=== PATIENT | male | born 1970 | race Caucasian/White ===

== ENCOUNTER 2023-03-07 14:50 | Outpatient (OUT) | payer OTHER, SELFPAY ==
--- NOTE | 2023-03-07 | CA_ITS ---
Patient: SEVERO RAO Exam Date: 03/07/2023 : 1970 Gender:M Ordering : [facility] Admission #: [id number] Family : Order #: [id number] CLICK HERE TO VIEW EXAM ECHOCARDIOGRAM REPORT PROCEDURE: CA ECHO DOPPLER COMPLETE INDICATIONS: Dyspnea on exertion, hypertension, edema, diabetes COMPARISON: None. DESCRIPTION: COMPLETE ECHOCARDIOGRAM Real-time transthoracic echocardiography with 2D, M-mode, spectral and color flow Doppler performed. QUALITY: Technical quality was good. LEFT VENTRICLE: Normal chamber size. Mild concentric left ventricular hypertrophy. LV EF: Normal left ventricular ejection fraction, (>55%). DIASTOLIC: Normal diastolic function. ATRIAL SEPTUM: Visually appears intact. LEFT ATRIUM: Normal chamber size. RIGHT ATRIUM: Normal chamber size. RIGHT VENTRICLE: Normal chamber size. Normal systolic function. TRICUSPID VALVE: Normal mobility and thickness. No stenosis with mild regurgitation. No evidence of pulmonary hypertension. RVSP 30 mmHg MITRAL VALVE: Normal mobility and thickness. No evidence of mitral valve stenosis. There is no mitral annular calcification. Trivial mitral regurgitation. AORTIC VALVE: Normal trileaflet appearance. No visible sclerosis. Normal leaflet mobility. No evidence of aortic valve stenosis. No aortic regurgitation. AORTIC ROOT: Normal diameter and appearance. PULMONIC VALVE: Normal thickness and mobility. No stenosis. Trivial regurgitation. PERICARDIUM: Anterior free space; trivial effusion versus fat pad IVC: Collapses with inspirations. CONCLUSION: Global left ventricular systolic function is normal; visually estimated ejection fraction is 55 to 60%. Mildly increased left ventricular wall thickness. The right ventricle is normal in size and systolic function. Mild tricuspid regurgitation. Anterior free space; trivial effusion versus fat pad. Adult Echocardiography Procedure Report Left Ventricle LVEDD (3.7 - 5.6 cm): 5.06 cm LVESD (2.2 - 4.0 cm): 2.94 cm LVIVS thickness (0.6 - 1.2 cm): 1.29 cm LVPW thickness (0.5 - 1.0 cm): 1.15 cm e': 0.09 m/s E - e': 8.09 LVOT Max Gradient: 3.03 mm[Hg] LVOT Area (cm2): 0.87 m/s Peak Velocity (LVOT): 0.87 m/s LVOT Diameter 2.65 cm Left Atrium LA Volume Index (2D A2C): 22.29 ml/m2 Left Atrium Systolic Dimension: 3.53 cm Mitral Valve MV E to A Ratio: 1.36, 1.12 Mitral Valve A-Wave Peak Velocity: 0.59 m/s Mitral Valve E-Wave Peak Velocity: 0.73 m/s Right Ventricle Aorta AO Root Diam: 3.60 cm Ascending Ao Diam: 2.96 cm Aortic Valve AoV Area (Peak Dalton): 4.06 cm2, 4.06 cm2 Peak Velocity(Antegrade Flow): 1.18 m/s Peak Gradient(Antegrade Flow): 5.54 mm[Hg] Tricuspid Valve Peak Velocity (Regurgitant Flow): 2.60 m/s, 2.58 m/s Pulmonic Valve Peak Velocity: 0.91 m/s Peak Gradient: 2.58 mm[Hg], 4.21 mm[Hg] Right Atrium Right Atrium Systolic Pressure: 28.35 ml, 28.35 ml Dictated by: Teto Sorenson M.D. on 03/12/2023 at 14:19 Approved by: Teto Sorenson M.D. on 03/12/2023 at 14:22
== END 2023-03-07 14:51 ==
PROVIDERS: PCP Family Medicine; Visit Provider Nurse Practitioner Family
DX: R06.09 Other forms of dyspnea (principal); I10 Essential (primary) hypertension; R60.0 Localized edema
CPT/HCPCS: 93306

== ENCOUNTER 2023-04-01 10:55 | Outpatient (OUT) | payer OTHER, SELFPAY ==
[2023-04-01 12:07] LABS: Basophils Percent Auto 0.5 % (0.2-2.0); Eosinophils Absolute Auto 0.1 10^3/uL (0.0-0.7); Hematocrit 39.2 % (42.0-54.0); Immature Granulocytes Abs Auto 0.02 10^3/uL (0.00-0.03); Immature Granulocytes Pct Auto 0.3 % (0.0-0.5); Lymphocytes Absolute Auto 1.5 10^3/uL (1.2-3.8); Lymphocytes Percent Auto 24.7 % (20.5-60.0); Mean Corpuscular HGB Conc 33.2 g/dL (29.9-35.2); Mean Corpuscular Hemoglobin 30.7 pg (25.9-34.0); Mean Corpuscular Volume 92.5 fL (80.0-94.0); Mean Platelet Volume 10.4 fL (9.5-13.5); Monocytes Absolute Auto 0.5 10^3/uL (0.3-0.8); Monocytes Percent Auto 8.5 % (1.7-12.0); Platelet Count 194 10^3/uL (150-450); Red Blood Count 4.24 10^6/uL (4.70-6.10); Red Cell Distribution Width 13.1 % (11.0-15.0); White Blood Count 6.1 10^3/uL (4.0-11.0)
[2023-04-01 12:19] LABS: Estimated Average Glucose 134 mg/dL; Glycohemoglobin A1C 6.3 % (4.5-6.2)
[2023-04-01 13:01] LABS: Alanine Aminotransferase 50 U/L (16-63); Albumin Globulin Ratio 1.3; Albumin Level 4.1 g/dL (3.4-5.0); Alkaline Phosphatase 68 U/L (46-116); Aspartate Amino Transferase 31 U/L (15-37); Bilirubin Direct 0.1 mg/dL (0.0-0.2); Bilirubin Total 0.4 mg/dL (0.2-1.0); Chol HDL Ratio 2.4; Cholesterol 96 mg/dL (<=200); Free T3 2.25 pg/mL (2.18-3.98); Globulin 3.2 g/dL; HDL Cholesterol 40 mg/dL (40-60); LDL Cholesterol Calculated 39.4 mg/dL; Thyroid Stimulating Hormone 0.743 uIU/mL (0.358-3.740); Total Protein 7.3 g/dL (6.4-8.2); Triglycerides 83 mg/dL (<=150); VLDL CHOLESTEROL 16.6 mg/dL
== END 2023-04-01 10:56 | disposition home or self-care (01) ==
PROVIDERS: PCP Family Medicine; Visit Provider Family Medicine
DX: Z00.00 Encounter for general adult medical examination without abnormal findings (principal); Z79.899 Other long term (current) drug therapy; E11.9 Type 2 diabetes mellitus without complications; E78.5 Hyperlipidemia, unspecified; Z12.5 Encounter for screening for malignant neoplasm of prostate; Z12.11 Encounter for screening for malignant neoplasm of colon
CPT/HCPCS: 36415; 80061; 80076; 83036; 84436; 84443; 84481; 85025; G0103

== ENCOUNTER 2023-09-10 08:26 | Outpatient (OUT) | payer OTHER, SELFPAY ==
[2023-09-10 09:00] LABS: Alanine Aminotransferase 61 U/L (16-63); Albumin Globulin Ratio 1.3; Albumin Level 3.9 g/dL (3.4-5.0); Alkaline Phosphatase 75 U/L (46-116); Anion Gap 13.1; Aspartate Amino Transferase 41 U/L (15-37); BUN Creatinine Ratio 7.8; Bilirubin Total 0.5 mg/dL (0.2-1.0); Calcium 9.2 mg/dL (8.5-10.1); Carbon Dioxide 29.4 mmol/L (21.0-32.0); Chloride 102 mmol/L (98-107); Estimated GFR (African America >60 (>=60); Estimated GFR (Non-African Ame >60 (>=60); Glucose 196 mg/dL (74-106); Potassium 4.5 mmol/L (3.5-5.1); Sodium 140 mmol/L (136-145); Total Protein 6.9 g/dL (6.4-8.2)
[2023-09-10 09:06] LABS: Estimated Average Glucose 126 mg/dL
== END 2023-09-10 08:27 | disposition home or self-care (01) ==
LOC: LAB 08:27
PROVIDERS: PCP Family Medicine; Visit Provider Internal Medicine
DX: E11.8 Type 2 diabetes mellitus with unspecified complications (principal); Z51.81 Encounter for therapeutic drug level monitoring; I10 Essential (primary) hypertension; K76.0 Fatty (change of) liver, not elsewhere classified
CPT/HCPCS: 36415; 80053; 82607; 83036

== ENCOUNTER 2023-11-28 10:56 | Outpatient (OUT) | payer OTHER, SELFPAY ==
--- OUTSIDE RECORDS SUMMARY | 2023-11-28 11:02 | XMS_ITS | CCD ---
Author Name Unknown Address [address] [place] [address] Organization [facility] Care Team Providers Care Tooth Clerk Name Role Phone STEFFEN SAM Unavailable Unavailable HOY, STEFFEN Unavailable Unavailable HOY, STEFFEN Unavailable Unavailable HOY, STEFFEN Unavailable Unavailable ARRON, GALE Unavailable Unavailable HOSTEFFEN Yin M Unavailable Unavailable ARRON, GALE Unavailable Unavailable ARRON, GALE Unavailable Unavailable STEFFEN SAM M Unavailable Unavailable ONEYDAARWILLIAM Unavailable Unavailable MAATOUK, AHMAD F Unavailable Unavailable KOLLURU, ROXANN Unavailable Unavailable WAGNER, DR BOURNE Primary Care Unavailable EDWARDUKADANY, DR GOSS Admitting Unavailable MOUKADANY, DR GOSS Attending Unavailable MOUKADANY, DR GOSS Consulting Unavailable TERESAY, DR BOURNE Primary Care Unavailable HOY, DR BOURNE Admitting Unavailable HOY, DR BOURNE Attending Unavailable TERESAY, DR BOURNE Consulting Unavailable HOY, DR BOURNE Consulting Unavailable TERESAY, DR BOURNE Primary Care Unavailable HOY, DR BOURNE Admitting Unavailable WAGNER, DR BOURNE Attending Unavailable WAGNER, DR BOURNE Primary Care Unavailable NAYA, DR GOSS Attending Unavailable NAYA, DR GOSS Admitting Unavailable Deven Beckham Unavailable Steffen Sam Primary Care Unavailable Deven Beckham Attending Unavailable Deven Beckham Admitting Unavailable WHIT TOLEDO Attending Unavailable ANA PAULA PERSON Attending Unavailable Medications Current Medications Medication Drug Class(es) Dates Sig (Normalized) Sig (Original) 0.25 MG, 0.5 MG Dose 3 ML semaglutide 0.68 MG/ML Pen Injector [Ozempic] (2 sources) Start: 01-01-2023 inject 0.5 mg by subcutaneous injection every week Ozempic (0.25 or 0.5 MG/DOSE) 2 MG/3ML 0.5 mg Subcutaneous weekly for 28 days E11.8 12 Dec, 2022 Active Start: 01-01-2023 Ozempic (0.25 or 0.5 MG/DOSE) 2 MG/3ML 0.25 mg for one month and then increase to 0.5 mg dose Subcutaneous weekly for 30 days E11.8 12 Dec, 2022 Active 3 ML semaglutide 1.34 MG/ML Pen Injector [Ozempic] (4 sources) Start: 07-16-2023 Ozempic (1 MG/ DOSE) 4 MG/3ML 1 mg as directed Subcutaneous weekly for 30 days 1 mg dose temporarily until 2 mg dose available. Jun, Active Start: 04-16-2023 inject 1 mg by subcu taneous injection every week Ozempic (1 MG/DOSE) 4 MG/3ML 1 mg as directed Subcutaneous weekly for 30 days Mar, Active 3 ML semaglutide 2.68 MG/ML Pen Injector [Ozempic] (3 sources) Start: 06-03-2023 inject 2 mg by subcutaneous injection every week Ozempic (2 MG/DOSE) 8 MG/3ML 2 mg Subcutaneous weekly for 30 days May, Active amLODIPine 5 mg oral tablet (14 sources) Dihydropyridine Calcium Channel Benito take 1 tablet by mouth every twenty-four hours amLODIPine Besylate 5 MG 1 tablet Orally Once a day Active gabapentin 300 mg oral capsule (14 sources) Anti-epileptic Agent take 1 capsule by mouth every eight hours Gabapentin 300 MG 1 capsule Orally tid Active 24 hr metFORMIN hydrochloride 500 mg extended release oral tablet (14 sources) Biguanide take 2 tablets by mouth every twelve hours metFORMIN HCl ER 500 MG 2 tablets Orally bid Active 24 hr metoprolol succinate 100 mg extended release oral tablet (20 sources) beta-Adrenergic Benito take 1 tablet by mouth every twenty-four hours Metoprolol Succinate ER 100 MG 1 tablet Orally Once a day Active take 1 tablet by trip th every twenty-four hours Metoprolol Succinate ER 50 MG 1 tablet Orally Once a day Active naltrexone hydrochloride 50 mg oral tablet (4 sources) Opioid Antagonist Start: 09-10-2023 take 0.5-1 tablets by mouth once daily Naltrexone HCl 50 MG 1/2-1 tablet Orally Once a day for 30 days Aug, Active ozempic (1 mg/dose) 4 mg/3ml solution pen-injector (1 source) inject 1 mg by subcutaneous injection every week Ozempic (1 MG/DOSE) 4 MG/3ML INJECT 1 (ONE) mg SUBCUTANEOUSLY ONCE A WEEK for 30 Active ozempic (2 mg/dose) 8 mg/3ml solution pen-injector (5 sources) Start: 06-03-2023 inject 2 mg by subcutaneous injection every week Ozempic (2 MG/DOSE) 8 MG/3ML 2 mg Subcutaneous weekly for 30 days May, Active pioglitazone 30 mg oral tablet (6 sources) Peroxisome Proliferator Receptor alpha Agonist, Peroxisome Proliferator Receptor gamma Agonist, Thiazolidinedione take 1 tablet by mouth every twenty-four hours Actos 30 MG 1 tablet Orally Once a day Active rosuvastatin calcium 20 mg oral tablet (14 sources) HMG-CoA Reductase Inhibitor take 1 tablet by mouth every twenty-four hours Rosuvastatin Calcium 20 MG 1 tablet Orally Once a day Active 0.25 mg, 0.5 mg dose 1.5 ml semaglutide 1.34 mg/ml pen injector (1 source) Start: 01-01-2023 Ozempic (0.25 or 0.5 MG/DOSE) 2 MG/1.5ML 0.25 mg for one month and then increase to 0.5 mg dose Subcutaneous weekly for 30 days Dec, Active Completed/Discontinued Medications Medication Drug Class(es) Dates Sig (Normalized) Sig (Original) B-12 - up to 1000 mcg (3 sources) Start: 09-11-2023 B-12 - up to 1000 mcg Aug, 1000 mcg Hydrochlorothiazide -12.5 mg 12.5 mg (10 sources) take 1 tablet by mouth once daily as needed Hydrochlorothiazid e-12.5 mg 12.5 mg 1 tablet Orally Once a day Not-Taking/PRN take 1 tablet by mouth once rigoberto y Hydrochlorothiazide-12.5 mg 12.5 mg 1 tablet Orally Once a day Not-Taking take 1 tablet by mouth once rigoberto y Hydrochlorothiazide-12.5 mg 12.5 mg 1 tablet Orally Once a day Active Problems Active Problems Problem Classification Problem Date Documented Date Episodic/Chronic Calculus of urinary tract (19 sources) Kidney stone; Translations: [Calculus of kidney] Episodic Coronary atherosclerosis and other heart disease (3 sources) Coronary atherosclerosis due to lipid rich plaque; Translations: [Atherosclerotic heart disease of lummi coronary artery without angina pectoris] Onset: 07-26-2022 Chronic Diabetes mellitus with complications (20 sources) Type 2 diabetes mellitus with diabetic neuropathy, unspecified; Translations: [Disorder due to type 2 diabetes mellitus] Onset: 11-29-2021 Chronic Disorders of lipid metabolism (20 sources) Hyperlipidemia, unspecified; Translations: [Mixed hyperlipidemia] Onset: 11-29-2021 Chronic Essential hypertension (20 sources) Essential (primary) hypertension; Translations: [Hypertensive disorder] Onset: 11-29-2021 Chronic Nutritional deficiencies (2 sources) Deficiency of other specified B group vitamins Episodic Other aftercare (6 sources) Medication monitoring; Translations: [Encounter for therapeutic drug level monitoring] Episodic Other aftercare (2 sources) Encounter for therapeutic drug level monitoring Episodic Other liver diseases (14 sources) Steatosis of liver; Translations: [Fatty (change of) liver, not elsewhere classified] Chronic Other liver diseases (5 sources) Fatty (change of) liver, not elsewhere classified Chronic Other lower respiratory disease (1 source) Other forms of dyspnea; Translations: [OTHER FORMS OF DYSPNEA] Onset: 08-01-2022 Episodic Other nervous system disorders (14 sources) Neuropathy; Translations: [Polyneuropathy, unspecified] Chronic Other nervous system disorders (5 sources) Polyneuropathy, unspecified Chronic Other nutritional; endocrine; and metabolic disorders (14 sources) Metabolic syndrome X; Translations: [Metabolic syndrome] Chronic Other nutritional; endocrine; and metabolic disorders (14 sources) Morbid obesity; Translations: [Morbid (severe) obesity due to excess calories] Chronic Other nutritional; endocrine; and metabolic disorders (5 sources) Metabolic syndrome Chronic Other nutritional; endocrine; and metabolic disorders (5 sources) Morbid (severe) obesity due to excess calories Chronic Other nutritional; endocrine; and metabolic disorders (12 sources) Obesity; Translations: [Obesity, unspecified] Chronic Other nutritional; endocrine; and metabolic disorders (1 source) Abnormal weight gain Episodic Residual codes; unclassified (8 sources) Obstructive sleep apnea syndrome; Translations: [Obstructive sleep apnea (adult) (pediatric)] Chronic Residual codes; unclassified (3 sources) Obstructive sleep apnea (adult) (pediatric) Chronic Spondylosis; intervertebral disc disorders; other back problems (4 sources) Other cervical disc displacement at C6-C7 level; Translations: [Spondylosis; intervertebral disc disorders; other back problems] Onset: 06-16-2018 Unclassified (2 sources) Unknown / UNK(Unknown) Onset: 11-18-2016 Unclassified (1 source) Dietary counseling and surveillance; Translations: [Dietary counseling and surveillance] Onset: 09-11-2023 Past or Other Problems Problem Classification Problem Date Documented Da te Episodic/Chronic Malaise and fatigue (1 source) Other fatigue; Translations: [OTHER FATIGUE] Onset: 11-29-2021 Episodic Residual codes; unclassified (3 sources) Localized edema; Translations: [LOCALIZED EDEMA] Onset: 08-01-2022 Episodic Results Test Name Value Interpretation Reference Range Facility Office Visiton 10-15-2023 Follow-up visit [id number] Edward Townsend nti A 1970 M Date Provider Department Center 10/15/2023 ANA PAULA CABRAL Family History Problem Relation Age of Onset Diabetes Father Stroke Father Stroke Maternal Grandmother Family Status - Relation Status Age at Father Maternal Grandmother Level of Service:[address] [place] OFFICE/OUTPATIENT ESTABLISHED LOW [facility] 20 MIN Reason for Visit and Comments: Follow-up [662269] Normal [facility] Provider Letteron 04-09-2023 Provider Letter (Inserted Image. Renetta ble to display) April 09, 2023 JOSE TOWNSEND [address] [place] [phone] : 1970 Dear Jose , We have been trying to reach you with no success. It is important that you return our call regarding your referral from Dr Sam upon receiving this letter. Also, at the time of your call, please provide us with your current information. Thank you for your prompt attention to this matter. Sincerely, General Surgery Brigette [phone] [facility] Physician Referralon 023 Physician Referral [id number] [facility] Office Visiton 04-01-2023 Follow-up visit [id number] Edward Townsend A 1970 M Date Provider Department Center 04/01/2023 [id number] GARCIA Family History Problem Relation Age of Onset Diabetes Father Stroke Father Stroke Maternal Grandmother Family Status - Relation Status Age at Father Maternal Grandmother Level of Service:70446 [place] OFFICE/OUTPATIENT ESTABLISHED MOD MDM 30-39 MIN Normal [facility] BNPon 07-26-2022 Natriuretic peptide B (Bld) [Mass/Vol] 45.0 pg/mL Normal <=900.0 [facility] Comment on above: Performed By: #### B JEWELRY SALES REPRESENTATIVE #### [facility] [address] [place] [address] Dr. Teja Monreal PROF CHEM 8 (BAS METB)on Anion gap [Moles/Vol] 9.5 mmol/L Normal [facility] Comment on above: Performed By: #### B MP #### [facility] [address] [place] [address] Dr. Teja Monreal Calcium [Mass/Vol] 8.7 mg/dL Normal 8.5-10.1 [facility] Comment on above: Performed By: #### B MP #### [facility] [address] [place] [address] Dr. Teja Monreal Chloride [Moles/Vol] 105 mmol/L Normal 98-107 [facility] Comment on above: Performed By: #### B MP #### [facility] [address] [place] [address] Dr. Teja Monreal CO2 [Moles/Vol] 27.9 mmol/L Normal 21.0-32.0 [facility] Comment on above: Performed By: #### B MP #### [facility] [address] [place] [address] Dr. Teja Monreal Creatinine [Mass/Vol] 1.18 mg/dL Normal 0.70-1.30 [facility] Comment on above: Performed By: #### B MP #### [facility] [address] [place] [address] Dr. Teja Monreal EGFR-AF BANGLADESHI >60 Normal >=60 [facility] Comment on above: Performed By: #### B MP #### [facility] [address] [place] [address] Dr. Teja Monreal EGFR-NON AF BANGLADESHI >60 Normal >=60 [facility] Comment on above: Performed By: #### B MP #### [facility] [address] [address] [address] Teja Monreal Glucose [Mass/Vol] 137 mg/dL Critically high 74-106 [facility] Comment on above: Performed By: #### B MP #### [facility] [address] [address] [address] Teja Monreal Potassium [Moles/Vol] 4.4 mmol/L Normal 3.5-5.1 [facility] Comment on above: Performed By: #### B MP #### [facility] [address] [address] [address] Teja Monreal Sodium [Moles/Vol] 138 mmol/L Normal 136-145 [facility] Comment on above: Performed By: #### B MP #### [facility] [address] [address] [address] Teja Monreal Urea nitrogen [Mass/Vol] 14.0 mg/dL Normal 7.0-18.0 [facility] Comment on above: Performed By: #### B MP #### [facility] [address] [address] [address] Teja Monreal Urea nitrogen/Creatinine [Mass ratio] 11.9 mg/mg Normal [facility] Comment on above: Performed By: #### B MP #### [facility] [address] [address] [address] Teja Monreal OCC BLD IMMUNO SCREENon OCCULT BLOOD Negative Normal NEGATIVE [facility] Comment on above: Performed By: #### O BSCRN #### [facility] [address] [address] [address] Teja Monreal CBC AUTO DIFFon 11-27-2021 BASO # 0.1 103/ul Normal 0.0-0.1 [facility] Comment on above: Performed By: #### C BC #### [facility] [address] [address] [address] Teja Monreal Basophils/100 WBC (Bld) 0.9 % Normal 0.2-2.0 [facility] Comment on above: Performed By: #### C BC #### [facility] [address] [place] [address] Dr. Teja Monreal EO # 0.1 103/ul Normal 0.0-0.7 [facility] Comment on above: Performed By: #### C BC #### [facility] [address] [place] [address] Dr. Teja Monreal Eosinophils/100 WBC (Bld) 1.1 % Normal 0.9-7.0 [facility] Comment on above: Performed By: #### C BC #### [facility] [address] [place] [address] Dr. Teja Monreal Erythrocyte distribution width (RBC) [Ratio] 13.0 % Normal 11.0-15.0 [facility] Comment on above: Performed By: #### C BC #### [facility] [address] [place] [address] Dr. Teja Monreal Hematocrit (Bld) [Volume fraction] 41.2 % Critically low 42.0-54.0 [facility] Comment on above: Performed By: #### C BC #### [facility] [address] [place] [address] Dr. Teja Monreal Hemoglobin (Bld) [Mass/Vol] 13.5 g/dL Critically low 14.0-18.0 [facility] Comment on above: Performed By: #### C BC #### [facility] [address] [place] [address] Dr. Teja Monreal IG # 0.03 10e3/ul Normal 0.00-0.03 [facility] Comment on above: Performed By: #### C BC #### [facility] [address] [place] [address] Dr. Teja Monreal IG % 0.5 % Normal 0.0-0.5 [facility] Comment on above: Performed By: #### C BC #### [facility] [address] [place] [address] Dr. Teja Monreal LYMPH # 1.5 103/ul Normal 1.2-3.8 [facility] Comment on above: Performed By: #### C BC #### [facility] [address] [place] [address] Dr. Teaj Monreal Lymphocytes/100 WBC (Bld) 26.1 % Normal 20.5-60.0 [facility] Comment on above: Performed By: #### C BC #### [facility] [address] [place] [address] Dr. Teja Monreal MANUAL DIFF REQ NO Normal [facility] Comment on above: Performed By: #### C BC #### [facility] [address] [place] [address] Dr. Teja Monreal MCH (RBC) [Entitic mass] 31.9 pg Normal 25.9-34.0 [facility] Comment on above: Performed By: #### C BC #### [facility] [address] [place] [address] Dr. Teja Monreal MCHC (RBC) [Mass/Vol] 32.8 g/dL Normal 29.9-35.2 [facility] Comment on above: Performed By: #### C BC #### [facility] [address] [place] [address] Dr. Teja Monreal MCV (RBC) [Entitic vol] 97.4 fL Critically high 80.0-94.0 [facility] Comment on above: Performed By: #### C BC #### [facility] [address] [place] [address] Dr. Teja Monreal MONO # 0.5 103/ul Normal 0.3-0.8 [facility] Comment on above: Performed By: #### C BC #### [facility] [address] [place] [address] Dr. Teja Monreal Monocytes/100 WBC (Bld) 8.6 % Normal 1.7-12.0 [facility] Comment on above: Performed By: #### C BC #### [facility] [address] [place] [address] Dr. Teja Monreal NEUT # 3.5 103/ul Normal 1.4-6.5 [facility] Comment on above: Performed By: #### C BC #### [facility] [address] [address] [address] Teja Monreal Neutrophils/100 WBC (Bld) 62.8 % Normal 43.0-75.0 [facility] Comment on above: Performed By: #### C BC #### [facility] [address] [address] [address] Teja Monreal Platelet mean volume (Bld) [Entitic vol] 10.6 fL Normal 9.5-13.5 [facility] Comment on above: Performed By: #### C BC #### [facility] [address] [address] [address] Teja Monreal PLT 185 103/ul Normal 150-450 [facility] Comment on above: Performed By: #### C BC #### [facility] [address] [address] [address] Teja Monreal RBC 4.23 106/ul Critically low 4.70-6.10 [facility] Comment on above: Performed By: #### C BC #### [facility] [address] [address] [address] Teja Monreal WBC 5.6 103/ul Normal 4.0-11.0 [facility] Comment on above: Performed By: #### C BC #### [facility] [address] [address] [address] Teja Monreal FREE T3on 11-27-2021 FREE T3 2.14 pg/mlL Critically low 2.77-5.27 [facility] Comment on above: Performed By: #### F T3, LIPID, CMP, TSH, T4 #### [facility] [address] [address] [address] Teja Monreal GLYCOHEMOGLOBIN A1Con 2021 ADA RECOMMENDATION ADA THERAPEUTIC TARG ET 6.0 - 7.0 ACTION SUGGESTED > 7.0 Normal [facility] Comment on above: Performed By: #### A 1C #### [facility] [address] [address] [address] Teja Monreal Glucose [Mass/Vol] 143 mg/dL Normal [facility] Comment on above: Performed By: #### A 1C #### [facility] [address] [address] [address] Teja Monreal HbA1c (Bld) [Mass fraction] 6.6 % Critically high <=6.0 [facility] Comment on above: Performed By: #### A 1C #### [facility] [address] [address] [address] Teja Monreal LIPID PROFILEon 11-27-2021 CHOL-HDL RATIO NORM SEE BELOW Normal [facility] Comment on above: Result Comment: 3.3 - 4.4 LOW RISK 4.4 - 7.1 AVERAGE RISK 7.1 - 11.0 MODERATE RISK >11.0 HIGH RISK Performed By: #### F T3, LIPID, CMP, TSH, T4 #### [facility] [address] [address] [address] Teja Monreal Cholesterol [Mass/Vol] 116 mg/dL Normal <=200 [facility] Comment on above: Performed By: #### F T3, LIPID, CMP, TSH, T4 #### [facility] [address] [address] [address] Teja Monreal Cholesterol in HDL [Mass/Vol] 57 mg/dL Normal [facility] Comment on above: Performed By: #### F T3, LIPID, CMP, TSH, T4 #### [facility] [id number] Teja Monreal Cholesterol in LDL [Mass/Vol] 40.4 mg/dL Normal [facility] Comment on above: Performed By: #### F T3, LIPID, CMP, TSH, T4 #### [facility] [id number] Teja Monreal Cholesterol.total/C holesterol in HDL [Mass ratio] 2.0 {ratio} Normal [facility] Comment on above: Performed By: #### F T3, LIPID, CMP, TSH, T4 #### [facility] [id number] Teja Monreal HDL NORMAL > or = 60 mg/dl - LO W CARDIOVASCULAR RISK <40 mg/dl - HIGH CARDIOVASCULAR RISK Normal [facility] Comment on above: Performed By: #### F T3, LIPID, CMP, TSH, T4 #### [facility] [address] [address] [address] Teja Monreal LDL CALC NORMAL SEE BELOW Normal [facility] Comment on above: Result Comment: <100 mg/dl OPTIMAL 100 - 129 mg/dl NEAR OR ABOVE OPTIMAL 130 - 159 mg/dl BORDERLINE HIGH 160 - 189 mg/dl HIGH >190 mg/dl VERY HIGH Performed By: #### F T3, LIPID, CMP, TSH, T4 #### [facility] [address] [address] [address] Teja Monreal Triglyceride [Mass/Vol] 93 mg/dL Normal <=150 [facility] Comment on above: Performed By: #### F T3, LIPID, CMP, TSH, T4 #### [facility] [address] [address] [address] Teja Monreal VLDL CALC 18.6 mg/dL Normal [facility] Comment on above: Performed By: #### F T3, LIPID, CMP, TSH, T4 #### [facility] [address] [address] [address] Teja Monreal PROF 14(COMP METB)on 022 Albumin [Mass/Vol] 4.4 g/dL Normal 3.5-5.0 [facility] Comment on above: Performed By: #### F T3, LIPID, CMP, TSH, T4 #### [facility] [address] [address] [address] Teja Monreal Albumin/Globulin [Mass ratio] 1.4 {ratio} Normal [facility] Comment on above: Performed By: #### F T3, LIPID, CMP, TSH, T4 #### [facility] [address] [address] [address] Teja Monreal ALP [Catalytic activity/Vol] 68 U/L Normal 38-126 [facility] Comment on above: Performed By: #### F T3, LIPID, CMP, TSH, T4 #### [facility] [address] [address] [address] Teja Monreal ALT [Catalytic activity/Vol] 40 U/L Normal 21-72 [facility] Comment on above: Performed By: #### F T3, LIPID, CMP, TSH, T4 #### [facility] [address] [address] [address] Teja Monreal Anion gap [Moles/Vol] 11.1 mmol/L Normal [facility] Comment on above: Performed By: #### F T3, LIPID, CMP, TSH, T4 #### [facility] [address] [place] [place] [address] Dr. Teja Monreal AST [Catalytic activity/Vol] 31 U/L Normal 17-59 [facility] Comment on above: Performed By: #### F T3, LIPID, CMP, TSH, T4 #### [facility] [address] [place] [address] Dr. Teja Monreal Bilirubin [Mass/Vol] 0.5 mg/dL Normal 0.2-1.3 [facility] Comment on above: Performed By: #### F T3, LIPID, CMP, TSH, T4 #### [facility] [address] [place] [address] Dr. Teja Monreal Calcium [Mass/Vol] 9.3 mg/dL Normal 8.4-10.2 [facility] Comment on above: Performed By: #### F T3, LIPID, CMP, TSH, T4 #### [facility] [address] [place] [address] Dr. Teja Monreal Chloride [Moles/Vol] 100 mmol/L Normal 98-107 [facility] Comment on above: Performed By: #### F T3, LIPID, CMP, TSH, T4 #### [facility] [address] [place] [address] Dr. Teja Monreal CO2 [Moles/Vol] 32.0 mmol/L Critically high 22.0-30.0 [facility] Comment on above: Performed By: #### F T3, LIPID, CMP, TSH, T4 #### [facility] [address] [place] [address] Dr. Teja Monreal Creatinine [Mass/Vol] 1.35 mg/dL Critically high 0.66-1.25 [facility] Comment on above: Performed By: #### F T3, LIPID, CMP, TSH, T4 #### [facility] [address] [address] [address] Teja Monreal EGFR-AF BANGLADESHI >60 Normal >=60 [facility] Comment on above: Performed By: #### F T3, LIPID, CMP, TSH, T4 #### [facility] [address] [address] [address] Teja Monreal EGFR-NON AF BANGLADESHI 56 mL/min/1.73m2 Critically low >=60 [facility] Comment on above: Performed By: #### F T3, LIPID, CMP, TSH, T4 #### [facility] [address] [address] [address] Teja Monreal Globulin (S) [Mass/Vol] 3.1 g/dL Normal [facility] Comment on above: Performed By: #### F T3, LIPID, CMP, TSH, T4 #### [facility] [address] [address] [address] Teja Monreal Glucose [Mass/Vol] 129 mg/dL Critically high 74-106 [facility] Comment on above: Performed By: #### F T3, LIPID, CMP, TSH, T4 #### [facility] [address] [address] [address] Teja Monreal Potassium [Moles/Vol] 4.1 mmol/L Normal 3.4-5.0 [facility] Comment on above: Performed By: #### F T3, LIPID, CMP, TSH, T4 #### [facility] [address] [address] [address] Teja Monreal Protein [Mass/Vol] 7.5 g/dL Normal 6.1-8.2 [facility] Comment on above: Performed By: #### F T3, LIPID, CMP, TSH, T4 #### [facility] [address] [place] [address] Dr. Teja Monreal Sodium [Moles/Vol] 139 mmol/L Normal 137-145 [facility] Comment on above: Performed By: #### F T3, LIPID, CMP, TSH, T4 #### [facility] [address] [address] [address] Teja Monreal Urea nitrogen [Mass/Vol] 16.0 mg/dL Normal 9.0-20.0 [facility] Comment on above: Performed By: #### F T3, LIPID, CMP, TSH, T4 #### [facility] [address] [place] [address] Dr. Teja Monreal Urea nitrogen/Creatinine [Mass ratio] 11.9 mg/mg Normal [facility] Comment on above: Performed By: #### F T3, LIPID, CMP, TSH, T4 #### [facility] [address] [place] [address] Dr. Teja Monreal T4on 11-27-2021 T4 [Mass/Vol] 9.10 ug/dL Normal 5.53-11.00 [facility] Comment on above: Performed By: #### F T3, LIPID, CMP, TSH, T4 #### [facility] [address] [place] [address] Dr. Teja Monreal TSHon 11-27-2021 TSH 0.989 uIU/mL Normal 0.470-4.680 [facility] Comment on above: Performed By: #### B JEWELRY SALES REPRESENTATIVE #### [facility] [address] [place] [address] Dr. Teja Monreal TSH RANGE SEE BELOW Normal [facility] Comment on above: Result Comment: <0.3 4 UIU/ml HYPERTHYROID 0.34-5.60 UIU/ml EUTHYROID >5.60 UIU/ml HYPOTHYROID Performed By: #### B JEWELRY SALES REPRESENTATIVE #### [facility] [address] [place] [address] Dr. Teja Monreal Basic Metabolic Panelon 10-0 Anion gap 3 molar conc 14 mmol/L Critically high 7-13 [facility] Calcium mass conc 8.4 mg/dL Low 8.6-10.2 [facility] Chloride molar conc 102 mmol/L Normal 98-107 [facility] CO2 molar conc 24 mmol/L Normal 22-29 [facility] Creatinine mass conc 0.81 mg/dL Normal 0.70-1.20 [facility] GFR/1.73 sq M predicted among blacks MDRD vol rate/area (S/P/Bld) mL/min/{1.73_m2} Normal >60 [facility] Comment on above: Result Comment: >60 mL/min/1.73m2 EGFR, calc. for ages 18 and older using theMDRD formula (not corrected for weight), is valid for stablerenal function. GFR/1.73 sq M.predicted MDRD vol rate/area mL/min/{1.73_m2} Normal >60 [facility] Comment on above: Result Comment: >60 mL/min/1.73m2 EGFR, calc. for ages 18 and older using theMDRD formula (not corrected for weight), is valid for stablerenal function. Glucose mass conc 104 mg/dL Normal 74-109 [facility] Potassium molar conc 3.7 mmol/L Normal 3.5-5.1 [facility] Sodium molar conc 140 mmol/L Normal 132-144 [facility] Urea nitrogen mass conc 6 mg/dL Normal 6-20 [facility] CBC With Platelet and Differ entialon 06-23-2018 Basophils Auto #/vol (Bld) 0.0 10*3/uL Normal 0.0-0.2 [facility] Basophils/100 WBC Auto (Bld) 0.4 % Normal [facility] Eosinophils Auto #/vol (Bld) 0.1 10*3/uL Normal 0.0-0.7 [facility] Eosinophils/100 WBC Auto (Bld) 0.8 % Normal [facility] Erythrocyte distribution width Auto Ratio (RBC) 13.3 % Normal 11.5-14.5 [facility] Hematocrit Auto Volume Fraction (Bld) 33.1 % Low 42.0-52.0 [facility] Hemoglobin mass conc (Bld) 11.5 g/dL Low 14.0-18.0 [facility] Lymphocytes Auto #/vol (Bld) 2.5 10*3/uL Normal 1.0-4.8 [facility] Lymphocytes/100 WBC Auto (Bld) 32.7 % Normal [facility] MCH Auto Entitic mass (RBC) 32.4 pg Critically high 27.0-31.3 [facility] MCHC Auto mass conc (RBC) 34.7 % Normal 33.0-37.0 [facility] MCV Auto Entitic volume (RBC) 93.6 fL Normal 80.0-100.0 [facility] Monocytes Auto #/vol (Bld) 0.8 10*3/uL Normal 0.2-0.8 [facility] Monocytes/100 WBC Auto (Bld) 10.0 % Normal [facility] Neutrophils Auto #/vol (Bld) 4.3 10*3/uL Normal 1.4-6.5 [facility] Neutrophils/100 WBC Auto (Bld) 56.1 % Normal [facility] Platelets Auto #/vol (Bld) 180 10*3/uL Normal 130-400 [facility] RBC Auto #/vol (Bld) 3.53 10*6/uL Low 4.70-6.10 [facility] WBC Auto #/vol (Bld) 7.7 10*3/uL Normal 4.8-10.8 [facility] POCT Glucoseon 06-23-2018 Glucose mass conc 155 mg/dL Critically high 60-115 [facility] POC Performed on ACCU-CHEK Normal [facility] CBC With Platelet No Differe ntialon 06-22-2018 Erythrocyte distribution width Auto Ratio (RBC) 13.1 % Normal 11.5-14.5 [facility] Hematocrit Auto Volume Fraction (Bld) 38.0 % Low 42.0-52.0 [facility] Hemoglobin mass conc (Bld) 12.9 g/dL Low 14.0-18.0 [facility] MCH Auto Entitic mass (RBC) 31.9 pg Critically high 27.0-31.3 [facility] MCHC Auto mass conc (RBC) 34.0 % Normal 33.0-37.0 [facility] MCV Auto Entitic volume (RBC) 93.8 fL Normal 80.0-100.0 [facility] Platelets Auto #/vol (Bld) 204 10*3/uL Normal 130-400 [facility] RBC Auto #/vol (Bld) 4.05 10*6/uL Low 4.70-6.10 [facility] WBC Auto #/vol (Bld) 5.8 10*3/uL Normal 4.8-10.8 [facility] FLUORO FOR SURGICAL PROCEDUR ESon 06-22-2018 FLUORO FOR SURGICAL PROCEDURES EXAMINATION: FLUORO FOR SURGICAL PROCEDURES, 06/22/2018 6:45 AM CLINICAL HISTORY: 48-YEAR-OLD MALE, CERVICAL FUSIONCOMPARISONS: NONE AVAILABLETECHNIQUE: 8 intraoperative spot images of the cervical spine were obtained.Fluoroscopy time: 41.2 secondsFluoroscopic dose: 6.8 mGyFINDINGS: Intraoperative spot images of the cervical spine demonstrate localization of C6 with subsequent anterior spinal fusion of C6-7. There is evidence of discectomy and interbody fusion.IMPRESSION: INTRAOPERATIVE SPOT IMAGES FOR C6-7 ANTERIOR FUSION AND DISCECTOMY WITH INTERBODY FUSION.Interpreted by:JARET Lagosigned by:Ketty Johnson MD06/22/18inal result Normal [facility] OPERATIVE REPORTon 8 [place] [address] OPERATIVE REPORTPATIENT NAME: JOSE TOWNSEND : 1970[facility] REC NO: [id number] ROOM:ACCOUNT NO: [id number] ADMIT DATE: 06/22/2018PROVIDER: DOE PalomoATE OF PROCEDURE: 06/22/2018PREOPERATIVE DIAGNOSIS: Left C6-7 extruded disk.POSTOPERATIVE DIAGNOSIS: Left C6-7 extruded disk.OPERATION PERFORMED: Right anterior approach left C6-7 diskectomy,interbody cage, plate fusion.DESCRIPTION OF PROCEDURE: The patient was given general endotrachealanesthesia in supine position. A roll was placed under the neck. Armswere gently tucked at the sides. The anterior aspect of the neck was thenclipped, prepped, and draped. Time-out, the patient was identified. Ilaid a needle on the side of the neck. Lateral x-rays were obtained toconfirm level. The needle was withdrawn. The skin was infiltrated withsolution of 0.5% lidocaine with epinephrine. Transverse skin incision wasmade medial to the sternocleidomastoid muscle on the patient's right side. Dissection was carried down through the platysmal muscle. Staying alongthe medial aspect of the SCM muscle, the internal jugular vein, the carotidsheath, and its contents, the longus colli muscle was identified. He had johanna thick neck, measuring 7 cm to the anterior aspect of the vertebralcolumn. The needle was placed, the level was marked, lateral x-ray wasobtained to confirm level, and the needle was withdrawn. The right andleft longus colli muscles were then mobilized. The longus retractors fromthe Trimline system were then placed and held with the phantom retractor. The anterior aspect of the disk was cut with the Belkofski knife blade,entering into the disk space, using the punches, removed the degenerateddisk material and the curettes to prepare the endplates. The microscopewas brought onto the field. With use of the microscope, using thehigh-speed bone dissector and curettes, I encountered a very large leftextruded disk, severely compressing the left C7 nerve root. All of theextruded disk material was removed and a large and generous foraminotomywas made laterally for the exit of the C7 nerve root. I then did a smallforaminotomy on the patient's right side and the dura was exposed. Intradiskal height was measured and the intradiskal cage implant wasplaced. The wound was thoroughly irrigated. The plate was then positionedand the microscope was taken out of the field. The plate was positionedwith two bone screws at C6 and two at C7. Final was used and theconstruct was complete. A wound drain was placed and the retractor wasremoved. X-rays showed the construct to be in perfect position. The deeplayers were closed with interrupted 3-0 Vicryl suture and 4-0 Vicryl suturewas used for the skin edges. Estimated blood loss was less than 10 mL. Sterile dressing was applied.Signafuse reference SGF-037, [employer] plate 26-mm,#[id number], four bone screws, 16-mm [id number], Susana [id number], 8 mm x 12 x 14 mm.BRADLEY ESCALANTE, MDD: 06/22/2018 10:17:59 GH/[id number]#: [id number] Doc#: [id number]: Normal [facility] POCT Glucoseon 06-22-2018 Glucose mass conc 165 mg/dL Critically high 60-115 [facility] POC Performed on ACCU-CHEK Normal [facility] Glucose mass conc 119 mg/dL Critically high 60-115 [facility] POC Performed on ACCU-CHEK Normal [facility] Glucose mass conc 129 mg/dL Critically high 60-115 [facility] POC Performed on ACCU-CHEK Normal [facility] Basic Metabolic Panelon 05-24 Anion gap 3 molar conc 13 mmol/L Normal 7-13 [facility] Calcium mass conc 9.7 mg/dL Normal 8.6-10.2 [facility] Chloride molar conc 100 mmol/L Normal 98-107 [facility] CO2 molar conc 28 mmol/L Normal 22-29 [facility] Creatinine mass conc 0.72 mg/dL Normal 0.70-1.20 [facility] GFR/1.73 sq M predicted among blacks MDRD vol rate/area (S/P/Bld) mL/min/{1.73_m2} Normal >60 [facility] Comment on above: Result Comment: >60 mL/min/1.73m2 EGFR, calc. for ages 18 and older using theMDRD formula (not corrected for weight), is valid for stablerenal function. GFR/1.73 sq M.predicted MDRD vol rate/area mL/min/{1.73_m2} Normal >60 [facility] Comment on above: Result Comment: >60 mL/min/1.73m2 EGFR, calc. for ages 18 and older using theMDRD formula (not corrected for weight), is valid for stablerenal function. Glucose mass conc 146 mg/dL Critically high 74-109 [facility] Potassium molar conc 4.4 mmol/L Normal 3.5-5.1 [facility] Sodium molar conc 141 mmol/L Normal 132-144 [facility] Urea nitrogen mass conc 10 mg/dL Normal 6-20 [facility] Culture, MRSA Screenon 06-16 Culture, MRSA Screen ORDERED BY: NATALI ESCALANTE: Nares Nose COLLECTED: 06/16/18 14:25ANTIBIOTICS AT EZE.: RECEIVED : 06/16/18 14:25Culture, MRSA Screen FINAL 06/17/18 14:03 No MRSA isolated Normal [facility] Liver Panelon 06-16-2018 Albumin mass conc 5.1 g/dL Critically high 3.9-4.9 [facility] ALP enzyme act/vol 72 U/L Normal 35-104 [facility] ALT enzyme act/vol 50 U/L Critically high 0-41 [facility] AST enzyme act/vol 40 U/L Normal 0-40 [facility] Bilirubin Indirect see below Normal 0.0-0.6 [facility] Comment on above: Result Comment: Marlee rect Bilirubin cannot be calculated since Total Bilirubinand/or Direct Bilirubin is below measurable range. Bilirubin mass conc 0.4 mg/dL Normal 0.0-1.2 [facility] Bilirubin.direct mass conc mg/dL Normal 0.0-0.3 [facility] Protein mass conc 7.3 g/dL Normal 6.4-8.1 [facility] Partial Thromboplastin Timeo n 06-16-2018 aPTT Coag time (Bld) 27.7 s Normal 21.6-35.4 [facility] Comment on above: Order Comment: CBC c ancelled at 14:55 pm, 06/16/18 Result Comment: Hepa rin Therapeutic Range: 38.8 - 54.6 seconds. Prothrombin Timeon 8 INR Coag RelTime (PPP) 1.0 {INR} Normal [facility] Comment on above: Order Comment: CBC c ancelled at 14:55 pm, 06/16/18 Result Comment: Nael mmended INR therapeutic ranges for oral anticoagulanttherapyProphylaxis/treatment of: INR Venous Thrombosis, Pulmonary Embolism 2.0-3Prevention of Systemic Embolism from: Atrial Fibrillation 2.0-3.0 Myocardial Infarction 2.0-3.0 Mechanical Prosthetics Heart Valves 2.5-3.5 Recurrent Systemic Embolism 2.5-3.5Guidelines for patients with coagulopathy, e.g. liver disease:Use the Protime resulted in seconds. Mild 12.9-17.0 sec Moderate 17.1-22.6 sec Severe G.T. 22.6 sec Prothrombin time (PT) Coag time (PPP) 10.7 s Normal 9.6-12.3 [facility] Comment on above: Order Comment: CBC c ancelled at 14:55 pm, 06/16/18 Rejection Notificationon Rejected Test CBCND Normal [facility] Comment on above: Order Comment: CBC c ancelled at 14:55 pm, 06/16/18 Type and Screen Capture 3 sc rn cellon 06-16-2018 Bilirubin mass conc PAT[facility]: [facility] Ovalle [facility] [id number] : 1970 SEX: MORDERED BY: ARRON HUERTA ORDERED : 06/16/2018 12:59 COLLECTED: 06/16/2018 14:25ORDER : [id number] RECEIVED : 06/16/2018 14:25 LAB: CBC cancelled at 14:55 pm, 06/16/18 TEST NAME RESULT UNITS RANGES ABN FL STABORH Capture O POS FAntibody 3 Cell Scrn Captu NEG F --- Normal [facility] Urinalysis, reflex to cultur tova 06-16-2018 Bilirubin Ql (U) Negative Normal Negative [facility] Color Nom (U) Yellow Normal Straw/[place] [facility] Glucose Ql (U) 100 mg/dL Abnormal Negative [facility] Hemoglobin Test strip Ql (U) Negative Normal Negative [facility] Ketones Ql (U) Negative Normal Negative [facility] Leukocyte esterase Test strip Ql (U) Negative Normal Negative [facility] Nitrite Test strip Ql (U) Negative Normal Negative [facility] pH Test strip (U) 6.5 [pH] Normal 5.0-9.0 [facility] Protein Test strip Ql (U) Negative Normal Negative [facility] Specific gravity Relative Density (U) 1.015 Normal 1.005-1.03 [facility] Urine Reflexed to Culture Not Indicated Normal [facility] Urobilinogen Test strip Qn (U) 0.2 {Stephanie'U}/dL Normal < 2.0 [facility] Clarity Nom (U) Clear Normal Clear [facility] Vital Signs Date Time Vital Sign Value Performing Clinician Facility 09-10-2023 16:15-0500 Body height 165.1 cm Deven Beckham Other [facility] Other 09-10-2023 16:15-0500 Body mass index (BMI) [Ratio] 35.29 kg/m2 Deven Beckham Other [facility] Other 09-10-2023 16:15-0500 Body weight 96.21 kg Deven Beckham Other [facility] Other 09-10-2023 16:15-0500 Diastolic blood pressure 95 mm[Hg] Deven Beckham Other [facility] Other 09-10-2023 16:15-0500 Respiratory rate 18 /min Deven Beckham Other [facility] Other 09-10-2023 16:15-0500 SaO2% (BldA) [Mass fraction] 99 % Deven Beckham Other [facility] Other 09-10-2023 16:15-0500 Systolic blood pressure 136 mm[Hg] Deven Beckham Other [facility] Other 07-16-2023 15:45-0400 Body height 165.1 cm Deven Beckham Other [facility] Other 07-16-2023 15:45-0400 Body mass index (BMI) [Ratio] 35.64 kg/m2 Deven Beckham Other [facility] Other 07-16-2023 15:45-0400 Body weight 97.16 kg Deven Beckham Other [facility] Other 07-16-2023 15:45-0400 Diastolic blood pressure 79 mm[Hg] Deven Fordediff Other [facility] Other 07-16-2023 15:45-0400 Respiratory rate 18 /min Deven Fordediff Other [facility] Other 07-16-2023 15:45-0400 SaO2% (BldA) [Mass fraction] 98 % Deven Fordediff Other [facility] Other 07-16-2023 15:45-0400 Systolic blood pressure 116 mm[Hg] Devenraj Beckham Other [facility] Other 06-03-2023 14:30-0400 Body height 165.1 cm Deven Fordediff Other [facility] Other 06-03-2023 14:30-0400 Body mass index (BMI) [Ratio] 36.29 kg/m2 Deven Fordediff Other [facility] Other 06-03-2023 14:30-0400 Body weight 98.93 kg Devenraj Beckham Other [facility] Other 06-03-2023 14:30-0400 Diastolic blood pressure 85 mm[Hg] Deven Beckham Other [facility] Other 06-03-2023 14:30-0400 Respiratory rate 18 /min Deven Beckham Other [facility] Other 06-03-2023 14:30-0400 SaO2% (BldA) [Mass fraction] 99 % Deven Beckham Other [facility] Other 06-03-2023 14:30-0400 Systolic blood pressure 119 mm[Hg] Deven Beckham Other [facility] Other 04-16-2023 14:45-0400 Body height 165.1 cm Devne Beckham Other [facility] Other 04-16-2023 14:45-0400 Body mass index (BMI) [Ratio] 37.22 kg/m2 Deven Beckham Other [facility] Other 04-16-2023 14:45-0400 Body weight 101.47 kg Deven Beckham Other [facility] Other 04-16-2023 14:45-0400 Diastolic blood pressure 81 mm[Hg] Deven Beckham Other [facility] Other 04-16-2023 14:45-0400 Respiratory rate 18 /min Deven Beckham Other [facility] Other 04-16-2023 14:45-0400 SaO2% (BldA) [Mass fraction] 96 % Deven Fordediff Other [facility] Other 04-16-2023 14:45-0400 Systolic blood pressure 125 mm[Hg] Deven Fordediff Other [facility] Other 01-01-2023 15:00-0400 Body height 165.1 cm Deven Fordediff Other [facility] Other 01-01-2023 15:00-0400 Body mass index (BMI) [Ratio] 38.39 kg/m2 Deven Fordediff Other [facility] Other 01-01-2023 15:00-0400 Body weight 104.65 kg Deven Fordediff Other [facility] Other 01-01-2023 15:00-0400 Diastolic blood pressure 81 mm[Hg] Deven Fordediff Other [facility] Other 01-01-2023 15:00-0400 Respiratory rate 18 /min eDven Fordediff Other [facility] Other 01-01-2023 15:00-0400 SaO2% (BldA) [Mass fraction] 99 % Deven Fordediff Other [facility] Other 01-01-2023 15:00-0400 Systolic blood pressure 125 mm[Hg] Deven Fordediff Other [facility] Other Encounters Encounter Date Encounter Type Care Provider Facility Start: 10-21-2023 End: 10-21-2023 ambulatory Deven Beckham Other [facility] Other Start: 10-21-2023 Encounter by [employer] promise Deven Beckham [facility] Start: 10-15-2023 End: 10-15-2023 ambulatory [facility] Start: 09-11-2023 End: 09-11-2023 ambulatory Steffen Sam Facility:[facility] Start: 09-11-2023 Nursing evaluation o f patient and report Deven Beckham [facility] Start: 09-10-2023 End: 09-10-2023 ambulatory Deven Beckham Other [facility] Other Start: 09-10-2023 Follow-up encounter [facility] Start: 09-09-2023 End: 09-09-2023 ambulatory Deven Beckham Other [facility] Other Start: 09-09-2023 Telephone encounter [facility] Start: 07-16-2023 End: 07-16-2023 ambulatory Deven Beckham Other [facility] Other Start: 07-16-2023 Follow-up encounter [facility] Start: 06-03-2023 End: 06-03-2023 ambulatory Deven Beckham Other [facility] Other Start: 06-03-2023 Follow-up encounter [facility] Start: 05-23-2023 End: 05-23-2023 ambulatory Deven Beckham Other [facility] Other Start: 05-23-2023 Encounter by compute r link Deven Beckham [facility] Start: 05-02-2023 End: 05-02-2023 ambulatory Deven Beckham Other [facility] Other Start: 05-02-2023 Encounter by oscar Beckham [facility] Start: 04-16-2023 End: 04-16-2023 ambulatory Deven Beckham Other [facility] Other Start: 04-16-2023 Follow-up encounter [facility] Start: 04-03-2023 ambulatory Facility:[facility] Start: 04-02-2023 ambulatory Facility:[facility] Start: 04-01-2023 Telephone encounter [facility]en [facility] Start: 04-01-2023 End: 04-01-2023 ambulatory WHIT TOLEDO [facility] Other Start: 01-13-2023 End: 01-13-2023 ambulatory Deven Beckham Other [facility] Other Start: 01-13-2023 Telephone encounter [facility] Start: 01-01-2023 End: 01-01-2023 ambulatory Deven Beckham Other [facility] Other Start: 01-01-2023 Nutrition therapy Dev[facility] Start: 07-26-2022 End: 07-27-[address] STEFFEN SAM Facility:[facility] Start: 02-22-[address] STEFFEN SAM Facility :[facility] Start: 11-29-2021 Encounter for genera l adult medical examination without abnormal findings DR STEFFEN SAM [facility] Start: 11-28-2021 End: 11-28-[address] STEFFEN SAM Facility:[facility] Start: 11-28-2021 End: 11-28-2021 Encounter for general adult medical examination without abnormal findings DR STEFFEN SAM Facility:[facility] Start: 11-27-2021 End: 11-28-[address] STEFFEN SAM Facility:[facility] Start: 06-22-2018 End: 06-23-2018 Patient encounter BRADLEY Reyes [facility] Start: 06-16-2018 End: 06-21-2018 Patient encounter BRADLEY Reyes [facility] Start: 11-18-2016 End: 11-30-2016 Ambulatory STEFFEN SAM Facility:[facility] Procedures Date Procedure Procedure Detail Performing Clinician Start: 11-27-[address] JASWINDER SAM Comment on above: Performed By: #### P SAD #### [facility] [address] [place] [address] Dr. Teja Monreal Start: 06-23-2018 POCT GLUCOSE GALE ARRON Start: 06-23-2018 INITIATE OXYGEN THER APY PROTOCOL GALE ARRON Start: 06-23-2018 POCT GLUCOSE GALE ARRON Start: 06-23-2018 Basic metabolic pane l calcium total GALE ARRON Start: 06-23-2018 Blood count complete auto&auto difrntl wbc GALE ARRON Start: 06-23-2018 POCT GLUCOSE GALE ARRON Start: 06-22-2018 POCT GLUCOSE GALE ARRON Start: 06-22-2018 PLACE INTERMITTENT P NEUMATIC COMPRESSION DEVICE GALE ARRON Start: 06-22-2018 ACTIVITY TOLERATED G DARIUS ARRON Start: 06-22-2018 AMBULATE PATIENT BRADLEY LANZA Start: 06-22-2018 ENCOURAGE DEEP BREAT DILSHAD AND COUGHING GALE ARRON Start: 06-22-2018 FULL CODE GALE ARRON Start: 06-22-2018 INITIATE OXYGEN THER APY PROTOCOL GALE ARRON Start: 06-22-2018 MISCELLANEOUS NURSIN G CARE ORDER (SPECIFY) GALE ARRON Start: 06-22-2018 NEURO/VASCULAR CHECKS G DARIUS ARRON Start: 06-22-2018 NURSING COMMUNICATION G DARIUS ARRON Start: 06-22-2018 PLACE INTERMITTENT P NEUMATIC COMPRESSION DEVICE GALE ARRON Start: 06-22-2018 VITAL SIGNS GALE ARRON Start: 06-22-2018 WOUND CARE GALE ARRON Start: 06-22-2018 IP CONSULT TO HOSPITALIST GALOlvin DIAZEN Start: 06-22-2018 DIET CARB CONTROL GALE ARRON Start: 06-22-2018 POCT GLUCOSE GALE ARRON Start: 06-22-2018 DISCHARGE PATIENT GALE ARRON Start: 06-22-2018 PATIENT STATUS (FROM ED OR OR/PROCEDURAL) BRADLEY ESCALANTE Start: 06-22-2018 TRANSFER PATIENT BRADLEY LANZA Start: 06-22-2018 FLUORO FOR SURGICAL PROCEDURES BRADLEY ESCALANTE Start: 06-22-2018 Blood count complete automated BRADLEY ESCALANTE Start: 06-22-2018 POCT GLUCOSE BRADLEY ESCALANTE Start: 06-16-2018 Drug tst prsmv instr mnt chem analyzers pr date BRADLEY ESCALANTE Start: 06-16-2018 Basic metabolic pane l calcium total BRADLEY ESCALANTE Start: 06-16-2018 Hepatic function panel BRADLEY ESCALANTE Start: 06-16-2018 URINE RT REFLEX TO CULTURE BRADLEY ESCALANTE Start: 06-16-2018 Cul prsmptv pthgnc o rganism scrn w/colony estimj BRADLEY ESCALANTE Start: 06-16-2018 Prothrombin time BRADLEY LANAZ Start: 06-16-2018 Thromboplastin time partial plasma/whole blood BRADLEY ESCALANTE Start: 06-16-2018 TYPE AND SCREEN GALOlvin MARTIN Start: 06-16-2018 EKG 12-LEAD BRADLEY ESCALANTE Payers Date Payer Category Payer Unknown [id number] 2.16.8 [id number] 1970 Unknown [id number] 2.16.8 [id number] 1970 Unknown [id number] 2.16.84 [id number] 1971 Unknown [id number] 2.16.84 [id number] 1971 Unknown [id number] 2.16.84 [id number] 1971 Unknown [id number] 2.16.84 [id number] 1971 Unknown [id number] 2.16.8 [id number] 1958 Self-pay 1958 Unknown [id number] Unknown [id number] 2.16.8 [id number] Social History Date Type Detail Facility Sex Assigned At [facility] Other Clinical Notes 01-01-2023 to 10-15-2023 Note Date & Type Note Facility 10-15-2023 Note [facility] Subjective Jose Townsend is a 53 y.o. 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 Diabetes mellitus (CMS/HCC) Displacement of intervertebral disc at C6-C7 level Essential hypertension Herniated nucleus pulposus, C6-7 left Mixed hyperlipidemia Obesity with body mass index of 30.0-39.9 CKD (chronic kidney disease) Family History Problem Relation Name Age of Onset Diabetes Father Stroke Father Stroke Maternal Grandmother Social History Tobacco Use Smoking status: Former Types: Cigarettes Quit date: 1995 Years since quittin.0 Smokeless tobacco: Never Substance Use Topics Alcohol use: Yes Comment: occasional HPI Mr Townsend is seen in follow up on mild CAD by cath on 11/17/2016 (mild disease in OM and RCA and sluggish flow), hypertension, and hyperlipidemia (currently on rosuvastatin). He previously developed diarrhea on atorvastatin and he stopped it. Previously we stopped lisinopril due to low blood pressure. He has very strong family history of CAD. He has diabetes on treatment. Currently he says he feels ok. He has no chest pain. He has no shortness of breath No palpitations. He initially had some leg swelling with amlodipine but this has resolved. He reports that he was recently discovered to have anemia and will be getting vitamin B12 replacement. Review of Systems Cardiovascular: Negative for chest pain, dyspnea on exertion, irregular heartbeat, leg swelling, orthopnea, palpitations and syncope. Respiratory: Negative for cough and shortness of breath. Musculoskeletal: Negative for arthritis, falls and neck pain. Gastrointestinal: Negative for diarrhea and dysphagia. Neurological: Negative for light-headedness and loss of balance. Objective Visit Vitals BP 120/79 Pulse 87 Wt 97.5 kg (215 lb) SpO2 97% BMI 34.70 kg/m??? Smoking Status Former BSA 2.13 m??? Physical Exam Constitutional: Appearance: He is well-developed. He is not ill-appearing. HENT: Head: Normocephalic and atraumatic. Nose: Nose normal. Eyes: General: No scleral icterus. Pupils: Pupils are equal, round, and reactive to light. Neck: Thyroid: No thyromegaly. Vascular: No JVD. Cardiovascular: Rate and Rhythm: Normal rate and regular rhythm. Pulses: Radial pulses are 2+ on the right side and 2+ on the left side. Heart sounds: Normal heart sounds. No murmur heard. No friction rub. No gallop. Pulmonary: Effort: Pulmonary effort is normal. No respiratory distress. Breath sounds: Normal breath sounds. No wheezing or rales. Chest: Chest wall: No tenderness. Abdominal: General: Bowel sounds are normal. There is no distension. Palpations: Abdomen is soft. Tenderness: There is no abdominal tenderness. Musculoskeletal: General: No swelling. Cervical back: Neck supple. Skin: General: Skin is warm and dry. Neurological: General: No focal deficit present. Mental Status: He is alert and oriented to person, place, and time. Psychiatric: Mood and Affect: Mood normal. Behavior: Behavior is cooperative. Judgment: Judgment normal. Allergies No Known Allergies Medications Current Outpatient Medications: amLODIPine (Norvasc) 5 mg tablet, Take 2.5 mg by mouth in the morning., Disp: , Rfl: aspirin 81 mg EC tablet, in the morning., Disp: , Rfl: gabapentin (Neurontin) 300 mg capsule, gabapentin 300 mg capsule take 1 capsule by mouth every morning and 2 capsules at bedtime, Disp: , Rfl: metFORMIN XR (Glucophage-XR) 500 mg 24 hr tablet, metformin ER 500 mg tablet,extended release 24 hr take 2 tablets by mouth twice a day, Disp: , Rfl: metoprolol succinate XL (Toprol-XL) 100 mg 24 hr tablet, take 1 tablet by mouth every morning WITH 50 MGS, Disp: 90 tablet, Rfl: 3 metoprolol succinate XL (Toprol-XL) 50 mg 24 hr tablet, Take 1 tablet (50 mg) by mouth in the morning., Disp: 90 tablet, Rfl: 3 Ozempic 0.25 mg or 0.5 mg (2 mg/3 mL) pen injector, inject 0.25 milligram subcutaneously FOR ONE MONTH AND THEN INCREASE TO 0.5 MILLIGRAMS EVERY WEEK, Disp: , Rfl: rosuvastatin (Crestor) 20 mg tablet, Take 1 tablet (20 mg) by mouth in the morning. (Patient taking differently: Take 20 mg by mouth at bedtime.), Disp: 90 tablet, Rfl: 3 Recent Labs No visits with results within 6 Month(s) from this visit. Latest known visit with results is: [facility] Encounter on 11/17/2016 Component Date Value Ventricular Rate 11/17/2016 82 Atrial Rate 11/17/2016 82 KS Interval 11/17/2016 188 QRS DURATION 11/17/2016 84 QT Interval 11/17/2016 336 QTC CALCULATION(BEZET) 11/17/2016 392 P Douglas 11/17/2016 49 R-Douglas 11/17/2016 -46 T Wave Douglas 11/17/2016 44 Diagnosis 11/17/2016 Value:Sinus rhythm with occasional Premature ventricular complexes Left anterior fascicular block Abnormal ECG No previous ECGs available Con (more content not included)... [facility] 09-11-2023 Evaluation note Encounter Date Diagnosis Assessment Notes Aug, Vitamin B12 deficiency (ICD-10 - E53.8) [facility] Other 12-20-2023 Evaluation note* Encounter Date Diagnosis Assessment Notes Treatment Notes Treatment Clinical Notes Aug, Type 2 diabetes mellitus with unspecified complications (ICD-10 - E11.8) Aug, Severe obesity (BMI 35.0-39.9) with comorbidity (ICD-10 - E66.01) Aug, Hypertension (ICD-10 - I10) Aug, Fatty liver (ICD-10 - K76.0) Aug, Vitamin B12 deficiency (ICD-10 - E53.8) Aug, Mixed hyperlipidemia (ICD-10 - E78.2) Aug, Obstructive sleep apnea (ICD-10 - G47.33) Aug, Metabolic syndrome X (ICD-10 - E88.81) Aug, Neuropathy (ICD-10 - G62.9) Aug, Kidney stones (ICD-1 0 - N20.0) Aug, Medication monitorin g encounter (ICD-10 - Z51.81) [facility] Other 10-25-2023 Evaluation note* Encounter Date Diagnosis Assessment Notes Treatment Notes Treatment Clinical Notes Jun, Type 2 diabetes mellitus with unspecified complications (ICD-10 - E11.8) Jun, Hypertension (ICD-10 - I10) Jun, Mixed hyperlipidemia (ICD-10 - E78.2) Jun, Fatty liver (ICD-10 - K76.0) Jun, Metabolic syndrome X (ICD-10 - E88.81) Jun, Neuropathy (ICD-10 - G62.9) Jun, Kidney stones (ICD-1 0 - N20.0) Jun, Severe obesity (BMI 35.0-39.9) with comorbidity (ICD-10 - E66.01) Jun, Obstructive sleep apnea (ICD-10 - G47.33) Jun, Medication monitorin g encounter (ICD-10 - Z51.81) [facility] Other 09-12-2023 Evaluation note* Encounter Date Diagnosis Assessment Notes Treatment Notes Treatment Clinical Notes May, Type 2 diabetes mellitus with unspecified complications (ICD-10 - E11.8) May, Hypertension (ICD-10 - I10) May, Mixed hyperlipidemia (ICD-10 - E78.2) May, Fatty liver (ICD-10 - K76.0) May, Metabolic syndrome X (ICD-10 - E88.81) May, Neuropathy (ICD-10 - G62.9) May, Kidney stones (ICD-1 0 - N20.0) May, Severe obesity (BMI 35.0-39.9) with comorbidity (ICD-10 - E66.01) May, Obstructive sleep apnea (ICD-10 - G47.33) [facility] Other 08-11-2023 Evaluation note* Encounter Date Diagnosis Assessment Notes Treatment Notes Treatment Clinical Notes Apr, Type 2 diabetes mellitus with unspecified complications (ICD-10 - E11.8) [facility] Other 07-26-2023 Evaluation note* Encounter Date Diagnosis Assessment Notes Treatment Notes Treatment Clinical Notes Mar, Type 2 diabetes mellitus with unspecified complications (ICD-10 - E11.8) Mar, Hypertension (ICD-10 - I10) Mar, Mixed hyperlipidemia (ICD-10 - E78.2) Mar, Fatty liver (ICD-10 - K76.0) Mar, Metabolic syndrome X (ICD-10 - E88.81) Mar, Neuropathy (ICD-10 - G62.9) Mar, Kidney stones (ICD-1 0 - N20.0) Mar, Severe obesity (BMI 35.0-39.9) with comorbidity (ICD-10 - E66.01) [facility] Other 07-11-2023 Evaluation note* Encounter Date Diagnosis Assessment Notes Treatment Notes Treatment Clinical Notes Mar, Type 2 diabetes mellitus with unspecified complications (ICD-10 - E11.8) [facility] Other 07-11-[facility]23 [facility] Note Subjective Jose Townsend is a 52 y.o. year old male patient being with ild CAD by cath on 11/17/2016 (mild disease in OM and RCA and sluggish flow), hypertension, and hyperlipidemia. Patient Active Problem List Diagnosis Coronary arteriosclerosis in lummi artery Diabetes mellitus (CMS/HCC) Displacement of intervertebral disc at C6-C7 level Essential hypertension Herniated nucleus pulposus, C6-7 left Mixed hyperlipidemia Obesity with body mass index of 30.0-39.9 CKD (chronic kidney disease) Family History Problem Relation Name Age of Onset Diabetes Father Stroke Father Stroke Maternal Grandmother Social History Tobacco Use Smoking status: Former Types: Cigarettes Quit date: 1995 Years since quittin.5 Smokeless tobacco: Never Substance Use Topics Alcohol use: Yes Comment: occasional HPI Mr Townsend is seen in follow up on mild CAD by cath on 11/17/2016 (mild disease in OM and RCA and sluggish flow), hypertension, and hyperlipidemia (currently on rosuvastatin). He previously developed diarrhea on atorvastatin and he stopped it. Previously we stopped lisinopril due to low blood pressure. He has very strong family history of CAD. He has diabetes on treatment. Update: 07/26/2022 He c/o worsened leg swelling. Started at the beginning of the summer. Worsens with sitting. Does get better in the morning. He does not eat much salt, does not salt foods. Not drinking excessive amounts of fluid. He has stopped drinking. He has not lost much weight. He feels like he is retaining fluid. He has some shortness of breath, worsens with activity. He also notices SOB at rest at times. Has been having issues with SOB since having COVID. He wears a BiPAP at night, no orthopnea, no PND. He c/o fatigue in his legs at the end of the day. If he stands for long periods of time his legs will hurt worse. Update: Has occasional breathing problems No chest pain or dyspnea on exerion Lower extremity edema has significantly improved He is walking 3 miles every day Review of Systems Cardiovascular: Positive for leg swelling. Negative for chest pain, dyspnea on exertion, irregular heartbeat, near-syncope, orthopnea, palpitations, paroxysmal nocturnal dyspnea and syncope. Objective Visit Vitals BP 123/86 (BP Location: Left arm, Patient Position: Sitting) Pulse 83 Ht 1.676 m (5' 6 ) Wt 104 kg (229 lb) SpO2 98% BMI 36.96 kg/m??? Smoking Status Former BSA 2.2 m??? Physical Exam General: Awake, alert, good spirits. NAD Pulm: Breath sounds clear to ascultation bilaterally with no wheeze, crackles or rhonchi Cards: Regular rate and rhythm, S1, S2. No S3 or S4 gallop. Murmur: none Abd: Soft, Nontender, physiologic bowel sounds are present Extr: Lower extremity edema: None. Skin: warm, dry, well perfused Neuro: A&Ox3, No gross deficits Allergies No Known Allergies Medications Current Outpatient Medications: amLODIPine (Norvasc) 5 mg tablet, Take 2.5 mg by mouth in the morning., Disp: , Rfl: aspirin 81 mg EC tablet, in the morning., Disp: , Rfl: gabapentin (Neurontin) 300 mg capsule, gabapentin 300 mg capsule take 1 capsule by mouth every morning and 2 capsules at bedtime, Disp: , Rfl: metFORMIN XR (Glucophage-XR) 500 mg 24 hr tablet, metformin ER 500 mg tablet,extended release 24 hr take 2 tablets by mouth twice a day, Disp: , Rfl: metoprolol succinate XL (Toprol-XL) 100 mg 24 hr tablet, Take 1 tablet (100 mg) by mouth in the morning. In addition to 50mg tablets daily = 150mg daily, Disp: 90 tablet, Rfl: 3 metoprolol succinate XL (Toprol-XL) 50 mg 24 hr tablet, Take 1 tablet (50 mg) by mouth in the morning., Disp: 90 tablet, Rfl: 3 Ozempic 0.25 mg or 0.5 mg (2 mg/3 mL) pen injector, inject 0.25 milligram subcutaneously FOR ONE MONTH AND THEN INCREASE TO 0.5 MILLIGRAMS EVERY WEEK, Disp: , Rfl: pioglitazone (Actos) 30 mg tablet, pioglitazone 30 mg tablet take 1 tablet by mouth once daily, Disp: , Rfl: quinapriL-hydrochlorothiazide (Accuretic) 10-12.5 mg tablet, Take 1 tablet by mouth in the morning., Disp: , Rfl: rosuvastatin (Crestor) 20 mg tablet, Take 1 tablet (20 mg) by mouth in the morning. (Patient taking differently: Take 20 mg by mouth at bedtime.), Disp: 90 tablet, Rfl: 3 Recent Labs 07/26/2022 Sodium 138, potassium 4.4, CO2 27.9, BUN 14, serum creatinine 1.18, estimated GFR greater than 60% NT proBNP 45 Blood testing 11/27/2021: Hemoglobin 13.5, platelets 185, potassium 4.1, BUN 16, creatinine 1.35, GFR 56, cholesterol 116, HDL 57, triglycerides 93, LDL 40, T4 normal, TSH normal, hemoglobin A1c is 6.6%. ECG 07/26/2020: Sinus rhythm with occasional supraventricular premature complexes, nonspecific T wave abnormalities, moderate left axis deviation. His blood testing in February 2020 showed a hemoglobin of 10 and creatinine of 1.43. BUN 28. Previous testing showed normal renal function and (more content not included)...[facility]07-11-2023 NotePatient here for 6 mo follow up CAD, hypertension, and SEN. He had echo last month. Odalys cut his amlodipine in half at last visit in Jul 2022. He thinks he's still taking the full 5mg tablet. Says he has not been swelling like he was before. He walks about 3 miles before he goes to work everyday. Review of Systems Musculoskeletal: Positive for joint pain. All other systems reviewed and are negative.[facility] 04-12-2023 Evaluation note* Encounter Date Diagnosis Assessment Notes Treatment Notes Treatment Clinical Notes Dec, Abnormal weight gain (ICD-10 - R63.5) Dec, Type 2 diabetes mellitus with unspecified complications (ICD-10 - E11.8) Dec, Hypertension (ICD-10 - I10) Dec, Mixed hyperlipidemia (ICD-10 - E78.2) Dec, Fatty liver (ICD-10 - K76.0) Dec, Metabolic syndrome X (ICD-10 - E88.81) Dec, Neuropathy (ICD-10 - G62.9) Dec, Kidney stones (ICD-1 0 - N20.0) Dec, Severe obesity (BMI 35.0-39.9) with comorbidity (ICD-10 - E66.01) [facility] Other Evaluation noteNo InformationNort [employer] Other History general Narrative - Reported* Type Description Date Medical History DM type 2 2007 Medical History HTN Medical History High Cholesterol Medical History Sleep Apnea Bipap Medical History Fatty Liver Disease Medical History Kidney Stones Medical History Skin Cancer Surgical History appedectomy Surgical History wisdom teeth Surgical History disk fusion Surgical History knee surgery right Hospitalization History See above [facility] Other Summary Purpose Family History No Family History Records FoundNo Family History Records FoundNo Family History Records FoundNo Family History Records FoundNo Family History Records FoundNo Family History Records Found Advance Directives No Advanced Directives Records FoundNo Advanced Directives Records FoundNo Advanced Directives Records FoundNo Advanced Directives Records FoundNo Advanced Directives Records FoundNo Advanced Directives Records [id number] DISCHARGE SUMMARYPATIENT NAME: JOSE TOWNSEND : 1970MED REC NO: [id number] ROOM:ACCOUNT NO: [id number] ADMIT DATE: 06/22/2018PROVIDER: Bradley Escalante MD DISCH DATE:On 06/22/2018, right anterior approach left C6-7 diskectomy and interbodycage plate fusion.The patient tolerated the procedure well. Wound drain in place, removalthe next day.Once he is ambulatory with bladder control, we will discharge him in goodcondition.DISCHARGE DIAGNOSES:1. Left C6-7 extruded disk, resolved.2. Type 2 diabetes mellitus, non-insulin dependent.DISCHARGE MEDICATIONS: Percocet 5/325 #28, take one q.i.d. p.r.n. pain upto seven days. The patient has been instructed to keep the wound clean anddry for about three days. Avoiding soaking or soap for a week. Remove hiscollar for cares. Recheck in one month with x-rays. Prescription givenfor the x-rays. If he has any questions or problems in the meantime,contact the office. The construct is MRI c (more content not included)... Additional Source Comments (unrecognized sect ion and content) No Status Records FoundNo Status Records FoundNo Status Records FoundNo Status Records FoundNo Status Records FoundNo Status Records Found INFORMATION SOURCE (unrecogn ized section and content) DATE CREATED AUTHOR 03/13/2018 [facility] DATE CREATED AUTHOR AUTHOR'S ORGANIZ ATION 07/23/2018 [facility] DATE CREATED AUTHOR AUTHOR'S ORGANIZ ATION 08/02/2022 [facility] DATE CREATED AUTHOR AUTHOR'S ORGANIZ ATION 04/10/2023 [facility] DATE CREATED AUTHOR AUTHOR'S ORGANIZ ATION 09/12/2023 [facility] DATE CREATED AUTHOR AUTHOR'S ORGANIZ ATION 10/16/2023 [facility] REASON FOR VISIT (unrecogniz ed section and content) WMN InitialDLC Ozempic RXDC Ozempic RefillWMN F/UNew Refill RequestCancel Appointment RequestNo InformationReschedule Appointment RequestWMNDLC labsWMNB-12 ShotReschedule Appointment RequestCancel Appointment Request FOR RECORDS PERTAINING TO PATIENTS WHO ARE OR HAVE BEEN ENROLLED IN A CHEMICAL DEPENDENCY/SUBSTANCEABUSE PROGRAM, SOME INFORMATION MAY BE OMITTED. This clinical summary was aggregated from multiple sources. Caution should be exercised in using it in the provision of clinical care. This summary normalizes information from multiple sources, and as a consequence, information in this document may materially change the coding, format and clinical context of patient data. In addition, data may be omitted in some cases. CLINICAL DECISIONS SHOULD BE BASED ON THE PRIMARY CLINICAL RECORDS. [facility] [employer] provides no warranty or guarantee of the accuracy or completeness of information in this document.
[2023-11-28 12:21] LABS: Alanine Aminotransferase 45 U/L (16-63); Albumin Globulin Ratio 1.3; Albumin Level 4.2 g/dL (3.4-5.0); Alkaline Phosphatase 69 U/L (46-116); Anion Gap 16.8; Aspartate Amino Transferase 36 U/L (15-37); BUN Creatinine Ratio 9.5; Bilirubin Total 0.6 mg/dL (0.2-1.0); Calcium 9.1 mg/dL (8.5-10.1); Carbon Dioxide 25.6 mmol/L (21.0-32.0); Chloride 102 mmol/L (98-107); Estimated GFR (African America >60 (>=60); Estimated GFR (Non-African Ame >60 (>=60); Globulin 3.2 g/dL; Glucose 111 mg/dL (74-106); Potassium 4.4 mmol/L (3.5-5.1); Sodium 140 mmol/L (136-145); Total Protein 7.4 g/dL (6.4-8.2)
== END 2023-11-28 10:57 | disposition home or self-care (01) ==
LOC: LAB 10:58
PROVIDERS: PCP Family Medicine; Visit Provider Internal Medicine
DX: E53.8 Deficiency of other specified B group vitamins (principal); K76.0 Fatty (change of) liver, not elsewhere classified
CPT/HCPCS: 36415; 80053; 82607

== ENCOUNTER 2024-06-16 08:29 | Outpatient (OUT) | payer OTHER, SELFPAY ==
--- OUTSIDE RECORDS SUMMARY | 2024-06-16 08:48 | XMS_ITS | CCD ---
Author Organization [facility] Care Team Providers Care Script Coordinator Name Role Phone STEFFEN SAM Unavailable Unavailable HOY, STEFFEN Unavailable Unavailable HOY, STEFFEN Unavailable Unavailable HOY, STEFFEN Unavailable Unavailable ARRON, GALE Unavailable Unavailable HOYSTEFFEN M Unavailable Unavailable ARRON, GALE Unavailable Unavailable ARRON, GALE Unavailable Unavailable HOSTEFFEN Yin M Unavailable Unavailable SEDARWILLIAM D Unavailable Unavailable MAATOUK, AHMAD F Unavailable Unavailable KOLLURU, ROXANN Unavailable Unavailable WAGENR, DR BOURNE Primary Care Unavailable MOUKARBHARPER, DR GOSS Admitting Unavailable MOUKARBEL, DR GOSS Attending Unavailable MOUKARBEL, DR GOSS Consulting Unavailable HOY, DR BOURNE Primary Care Unavailable HOY, DR BOURNE Admitting Unavailable HOY, DR BOURNE Attending Unavailable HOY, DR BOURNE Consulting Unavailable HOY, DR BOURNE Consulting Unavailable HOY, DR BOURNE Primary Care Unavailable HOY, DR BOURNE Admitting Unavailable HOY, DR BOURNE Attending Unavailable HOY, DR BOURNE Primary Care Unavailable MOUKADANY, DR GOSS Attending Unavailable MOUKADANY, DR GOSS Admitting Unavailable Deven Beckham Unavailable Steffen Sam Primary Care Unavailable Deven Beckham Attending Unavailable Deven Beckham Admitting Unavailable ANA PAULA PERSON Attending Unavailable WHIT TOLEDO Attending Unavailable Medications Current Medications Medication Drug [...] Subcutaneous weekly for 30 days May, Active [id number] 200 actuat albuterol 0.09 mg/actuat metered dose inhaler (1 source) beta2-Adrenergic Agonist Start: 03-18-2024 Albuterol Sulfate Active INHALATION March 18, 2024 12:00am amLODIPine 5 mg oral tablet (16 sources) Dihydropyridine Calcium Channel Benito Start: 11-11-2023 take 5 mg by mouth once daily Amlodipine Active 5 MG PO Daily November 11, 2023 1:00am [facility] amLODIPine Besylate 5 MG 1 tablet Orally Once a day Active gabapentin 300 mg oral capsule (17 sources) Anti-epileptic Agent Start: 03-18-2024 take 300 mg by mouth twice daily Gabapentin Active 300 MG PO Twice daily March 18, 2024 3:22pm Start: 11-11-2023 End: 03-18-2024 take 300 mg by mouth three times daily Gabapentin Discontinued 300 MG PO Three times daily November 11, 2023 1:00am March 18, 2024 3:24pm take 1 capsule by mo [facility] every eight hours Gabapentin 300 MG 1 capsule Orally tid Active 24 hr metoprolol succinate 100 mg extended release oral tablet (20 sources) beta-Adrenergic Benito Start: 11-26-2023 take 100 mg by mouth once daily Metoprolol Succinate Active 100 MG PO Daily November 26, 2023 1:00am ) Start: 11-26-2023 take 50 mg by mouth once daily Metoprolol Succinate Active 50 MG PO Daily November 26, 2023 1:00am take 1 tablet by trip th every twenty-four hours Metoprolol Succinate ER 100 MG 1 tablet Orally Once a day Active take 1 tablet by trip th every twenty-four hours Metoprolol Succinate ER 50 MG 1 tablet Orally Once a day Active naltrexone hydrochloride 50 mg oral tablet (11 sources) Opioid Antagonist Start: 11-11-2023 End: 03-18-2024 take 50 mg by mouth once daily Naltrexone Active 50 MG PO Daily March 18, 2024 3:40pm Start: 09-10-2023 take 0.5-1 tablets b y mouth once daily Naltrexone HCl 50 MG 1/2-1 tablet Orally Once a day for 30 days Aug, Active ozempic (1 mg/dose) 4 mg/3ml solution pen-injector (1 source) inject 1 mg by subcutaneous injection every week Ozempic (1 MG/DOSE) 4 MG/3ML INJECT 1 (ONE) mg SUBCUTANEOUSLY ONCE A WEEK for 30 Active ozempic (2 mg/dose) 8 mg/3ml solution pen-injector (5 sources) Start: 2022 inject 2 mg by subcutaneous injection every [...] Active rosuvastatin calcium 20 mg oral tablet (16 sources) HMG-CoA Reductase Inhibitor Start: 2023 take 20 mg by mouth once daily Rosuvastatin Active 20 MG PO Daily November 11, 2023 1:00am take 1 tablet by trip th every twenty-four hours Rosuvastatin Calcium 20 MG 1 tablet Oral ly Once a day Active 0.25 mg, 0.5 mg dose 1.5 ml semaglutide 1.34 mg/ml pen injector (1 source) Start: 01-01-2023 Ozempic (0.25 or 0.5 MG/DOSE) 2 MG/1.5ML 0.25 mg for one month and then increase to 0.5 mg dose Subcutaneous weekly for 30 days Dec, Active Semaglutide (Ozempic) 2 mg/dose (8 mg/3 mL) pen injector (11 sources) Start: 03-18-2024 inject 2 mg by subcutaneous injection every week Semaglutide (Ozempic) 2 mg/dose (8 mg/3 mL) pen injector Active 2 MG SUBCUT every week 3 March 18, 2024 3:41pm Start: 01-21-2024 End: 03-18-2024 inject 2 mg by subcutaneous injection every week Semaglutide (Ozempic) 2 mg/dose (8 mg/3 mL) pen injector Discontinued 2 MG SUBCUT every week 3 January 21, 2024 5:21pm March 18, 2024 3:45pm Start: 01-21-2024 inject 2 mg by subcu taneous injection every week Semaglutide (Ozempic) 2 mg/dose (8 mg/3 mL) pen injector Active 2 MG SUBCUT every week 3 January 21, 2024 5:21pm Start: 01-07-2024 End: 01-21-2024 inject 2 mg by subcutaneous injection every week Semaglutide (Ozempic) 2 mg/dose (8 mg/3 mL) pen injector Discontinued 2 MG SUBCUT every week 3 January 07, 2024 8:28am January 21, 2024 5:22pm Start: 11-27-2023 End: 01-07-2024 inject 2 mg by subcutaneous injection every week Semaglutide (Ozempic) 2 mg/dose (8 mg/3 mL) pen injector Discontinued 2 MG SUBCUT every week 3 November 27, 2023 5:58pm January 07, 2024 8:28am Start: 11-11-2023 End: 11-27-2023 inject 2 mg by subcutaneous injection every week Semaglutide (Ozempic) 2 mg/dose (8 mg/3 mL) pen injector Discontinued 2 MG SUBCUT every week 3 November 11, 2023 9:17am November 27, 2023 6:00pm Start: 11-11-2023 End: 11-11-2023 inject 2 mg by subcutaneous injection every week Semaglutide (Ozempic) 2 mg/dose (8 mg/3 mL) pen injector Discontinued 2 MG SUBCUT every week November 11, 2023 1:00am November 11, 2023 9:18am Completed/Discontinued Medications Medication Drug Class(es) Dates Sig [...] 1 tablet Orally Once a day Active 24 hr metFORMIN hydrochloride 500 mg extended release oral tablet (20 sources) Biguanide Start: 11-11-2023 End: 01-21-2024 take 1000 mg by mouth twice daily Metformin Discontinued 1000 MG PO Twice daily 120 November 27, 2023 5:58pm January 21, 2024 5:22pm take 2 tablets by mo ut every twelve hours metFORMIN HCl ER 500 MG 2 tablets Orally bid Active Problems Active Problems Problem Classification Problem Date Documented Date Episodic/Chronic Calculus of urinary tract (19 sources) Kidney stone; Translations: [Calculus of kidney] Episodic Coronary atherosclerosis and other heart disease (3 sources) Coronary atherosclerosis due to lipid rich plaque; Translations: [Atherosclerotic heart disease of [place] coronary artery without angina pectoris] Onset: 07-26-2022 Chronic Diabetes mellitus with complications (20 sources) Type 2 diabetes mellitus with diabetic neuropathy, unspecified; Translations: [Disorder due to type 2 diabetes mellitus] Onset: 11-29-2021 Chronic Disorders of lipid metabolism (20 sources) Hyperlipidemia, unspecified; Translations: [Mixed hyperlipidemia] Onset: 11-29-2021 Chronic Essential hypertension (20 sources) Essential (primary) hypertension; Translations: [Hypertensive disorder] Onset: 11-29-2021 Chronic Nutritional deficiencies (7 sources) Deficiency of other specified B group vitamins; Translations: [Cobalamin deficiency] Episodic Other aftercare (6 sources) Medication monitoring; Translations: [Encounter for therapeutic drug level monitoring] Episodic Other aftercare (2 sources) Encounter for therapeutic drug level monitoring Episodic Other liver diseases (16 sources) Steatosis of liver; Translations: [Fatty (change of) liver, not elsewhere classified] 11-27-2023 Chronic Other liver diseases (8 sources) Fatty (change of) liver, not elsewhere classified; Translations: [Other chronic nonalcoholic liver disease] Chronic Other lower respiratory disease (1 source) [...] Chronic Other nutritional; endocrine; and metabolic disorders (2 sources) Obese class I; Translations: [Obesity, unspecified] 11-27-2023 Chronic Other nutritional; endocrine; and metabolic disorders (3 sources) Obesity, unspecified; Translations: [Obesity, unspecified] 11-27-2023 Chronic Other nutritional; endocrine; and metabolic disorders (1 source) Abnormal weight gain Episodic Residual codes; unclassified (10 sources) Obstructive sleep apnea syndrome; Translations: [Obstructive sleep apnea (adult) (pediatric)] 11-27-2023 Chronic Residual codes; unclassified (6 sources) Obstructive sleep apnea (adult) (pediatric); Translations: [Obstructive sleep apnea (adult)(pediatric)] Chronic Spondylosis; intervertebral disc disorders; other back problems (4 sources) Other cervical disc displacement at C6-C7 level; Translations: [Spondylosis; intervertebral disc disorders; other back problems] Onset: 06-16-2018 Unclassified (2 sources) Unknown / UNK(Unknown) Onset: 11-18-2016 Past or Other Problems Problem Classification Problem Date Documented Da te Episodic/Chronic Administrative/social admission (1 source) Dietary counseling and surveillance; Translations: [Dietary counseling and surveillance] Onset: 09-11-2023 Episodic Malaise and fatigue (1 source) Other fatigue; Translations: [OTHER FATIGUE] Onset: 11-29-2021 Episodic Residual codes; unclassified (3 sources) Localized edema; Translations: [LOCALIZED EDEMA] Onset: 08-01-2022 Episodic Results Test Name Value Interpretation Reference Range Facility 36on 02-23-2024 36 Approving, but needs appt for additional refills. Normal [facility] HbA1c HPLC (Bld) [Mass fract ion]on 01-21-2024 HbA1c (Bld) [Mass fraction] 6.3 % [facility] - Chemistry and C hemistry - challengeon 11-28-2023 Albumin [Mass/Vol] 4.2 g/dL [facility] ALP [Catalytic activity/Vol] 69 U/L [facility] ALT [Catalytic activity/Vol] 45 U/L [facility] AST [Catalytic activity/Vol] 36 U/L [facility] Bilirubin [Mass/Vol] 0.6 mg/dL [facility] Calcium [Mass/Vol] 9.1 mg/dL [facility] Chloride [Moles/Vol] 102 mmol/L [facility] CO2 [Moles/Vol] 25.6 mmol/L [facility] Creatinine [Mass/Vol] 1.05 mg/dL [facility] Glucose [Mass/Vol] 111 mg/dL [facility] Potassium [Moles/Vol] 4.4 mmol/L [facility] Protein [Mass/Vol] 7.4 g/dL [facility] Sodium [Moles/Vol] 140 mmol/L [facility] Urea nitrogen [Mass/Vol] 10.0 mg/dL [facility] Cobalamin (Vitamin B12) [Mass/Vol] 908.0 pg/mL [facility] Office Visiton 10-15-2023 Follow-up visit [id number] Edward Townsend 1970 M Date Provider Department Center 10/15/2023 ANA PAULA CABRAL GABRIEL [facility] Family History Problem Relation Age of Onset Diabetes Father Stroke Father Stroke Maternal Grandmother Family Status - Relation Status Age at Father Maternal Grandmother Level of Service:28935 [place] OFFICE/OUTPATIENT ESTABLISHED LOW MDM 20 MIN Reason for Visit and Comments: Follow-up [494827] Normal [facility] Provider Letteron 04-09-2023 Provider Letter (Inserted Image. Renetta ble to display) April 09, 2023 JOSE TOWNSEND [address] [place] [id number] : 1970 Dear Jose , We have been trying to reach you with no success. It is important that you return our call regarding your referral from Dr Sam upon receiving this letter. Also, at the time of your call, please provide us with your current information. Thank you for your prompt attention to this matter. Sincerely, General Surgery [place] [facility] [place] [phone] [facility] Physician Referralon 023 Physician Referral [phone] [facility] Office Visiton 04-01-2023 Follow-up visit [id number] KristianEdward Ovalle 1970 M Zackary Provider Department Center 04/01/2023 [id number] GARCIA GABRIEL [facility] Family History Problem Relation Age of Onset Diabetes Father Stroke Father Stroke Maternal Grandmother Family Status - Relation Status Age at Father Maternal Grandmother Level of Service:75081 [place] OFFICE/OUTPATIENT ESTABLISHED MOD MDM 30-39 MIN [facility] BNPon 07-26-2022 Natriuretic peptide B (Bld) [Mass/Vol] 45.0 pg/mL Normal <=900.0 [facility] Comment on above: Performed By: #### B CUSTOMER ASSISTANT #### [facility] [address] [address] [address] Teja Monreal PROF CHEM 8 (BAS METB)on Anion gap [Moles/Vol] 9.5 mmol/L Normal [facility] Comment on above: Performed By: #### B MP #### [facility] [address] [address] [address] Teja Monreal Calcium [Mass/Vol] 8.7 mg/dL Normal 8.5-10.[address] [facility] Comment on above: Performed By: #### B MP #### [facility] [address] [address] [address] Teja Monreal Chloride [Moles/Vol] 105 mmol/L Normal 98-107 [facility] Comment on above: Performed By: #### B MP #### [facility] [address] [address] [address] Teja Monreal CO2 [Moles/Vol] 27.9 mmol/L Normal 21.0-32.0 [facility] Comment on above: Performed By: #### B MP #### [facility] [address] [place] [address] Dr. Teja Monreal Creatinine [Mass/Vol] 1.18 mg/dL Normal 0.70-1.30 [facility] Comment on above: Performed By: #### B MP #### [facility] [address] [address] [address] Teja Monreal EGFR-AF TURKISH >60 Normal >=60 [facility] Comment on above: Performed By: #### B MP #### [facility] [address] [address] [address] Teja Monreal EGFR-NON AF TURKISH >60 Normal >=60 [facility] Comment on above: Performed By: #### B MP #### [facility] [address] [address] [address] Teja Monreal Glucose [Mass/Vol] 137 mg/dL Critically high 74-106 [facility] Comment on above: Performed By: #### B MP #### [facility] [address] [address] [address] Teja Monreal Potassium [Moles/Vol] 4.4 mmol/L Normal 3.5-5.1 [facility] Comment on above: Performed By: #### B MP #### [facility] [address] [address] [address] Teja Monreal Sodium [Moles/Vol] 138 mmol/L Normal 136-[address] [facility] Comment on above: Performed By: #### B MP #### [facility] [address] [place] [address] Dr. Teja Monreal Urea nitrogen [Mass/Vol] 14.0 mg/dL Normal 7.0-18.0 [facility] Comment on above: Performed By: #### B MP #### [facility] [address] [place] [address] Dr. Teja Monreal Urea nitrogen/Creatinine [Mass ratio] 11.9 mg/mg Normal [facility] Comment on above: Performed By: #### B MP #### [facility] [address] [place] [address] Dr. Teja Monreal OCC BLD IMMUNO SCREENon OCCULT BLOOD Negative Normal NEGATIVE [facility] Comment on above: Performed By: #### O BSCRN #### [facility] [address] [place] [address] Dr. Teja Monreal CBC AUTO DIFFon 11-27-2021 BASO # 0.1 103/ul Normal 0.0-0.1 [facility] Comment on above: Performed By: #### C BC #### [facility] [address] [place] [address] Dr. Teja Monreal Basophils/100 WBC (Bld) 0.9 % Normal 0.2-2.0 [facility] Comment on above: Performed By: #### C BC #### [facility] [address] [place] [address] Dr. Teja Monreal EO # 0.1 103/ul Normal 0.0-0.7 [facility] Comment on above: Performed By: #### C BC #### [facility] [address] [place] [address] Dr. Teja Monreal Eosinophils/100 WBC (Bld) 1.1 % Normal 0.9-7.0 [facility] Comment on above: Performed By: #### C BC #### [facility] [address] [place] [address] Dr. Teja Monreal Erythrocyte distribution width (RBC) [Ratio] 13.0 % Normal 11.0-15.0 [facility] Comment on above: Performed By: #### C BC #### [facility] [address] [place] [address] Dr. Teja Monreal Hematocrit (Bld) [Volume fraction] 41.2 % Critically low 42.0-54.0 [facility] Comment on above: Performed By: #### C BC #### [facility] [address] [place] [address] Dr. Teja Monreal Hemoglobin (Bld) [Mass/Vol] 13.5 g/dL Critically low 14.0-18.0 [facility] Comment on above: Performed By: #### C BC #### [facility] [address] [place] [address] Dr. Teja Monreal IG # 0.03 10e3/ul Normal 0.00-0.03 [facility] Comment on above: Performed By: #### C BC #### [facility] [address] [place] [address] Dr. Teja Monreal IG % 0.5 % Normal 0.0-0.5 [facility] Comment on above: Performed By: #### C BC #### [facility] [address] [place] [address] Dr. Teja Monreal LYMPH # 1.5 103/ul Normal 1.2-3.8 [facility] Comment on above: Performed By: #### C BC #### [facility] [address] [place] [address] Dr. Teja Monreal Lymphocytes/100 WBC (Bld) 26.1 % Normal 20.5-60.0 [facility] Comment on above: Performed By: #### C BC #### [facility] [address] [place] [address] Dr. Teja Monreal MANUAL DIFF REQ NO Normal [facility] Comment on above: Performed By: #### C BC #### [facility] [address] [place] [address] Dr. Teja Monreal MCH (RBC) [Entitic mass] 31.9 pg Normal 25.9-34.0 [facility] Comment on above: Performed By: #### C BC #### [facility] [address] [place] [address] Dr. Teja Monreal MCHC (RBC) [Mass/Vol] 32.8 g/dL Normal 29.9-35.2 [facility] Comment on above: Performed By: #### C BC #### [facility] [address] [place] [address] Dr. Teja Monreal MCV (RBC) [Entitic vol] 97.4 fL Critically high 80.0-94.0 [facility] Comment on above: Performed By: #### C BC #### [facility] [address] [place] [address] Dr. Teja Monreal MONO # 0.5 103/ul Normal 0.3-0.8 [facility] Comment on above: Performed By: #### C BC #### [facility] [address] [place] [address] Dr. Teja Monreal Monocytes/100 WBC (Bld) 8.6 % Normal 1.7-12.0 [facility] Comment on above: Performed By: #### C BC #### [facility] [address] [place] [address] Dr. Teja Monreal NEUT # 3.5 103/ul Normal 1.4-6.5 [facility] Comment on above: Performed By: #### C BC #### [facility] [address] [place] [address] Dr. Teja Monreal Neutrophils/100 WBC (Bld) 62.8 % Normal 43.0-75.0 [facility] Comment on above: Performed By: #### C BC #### [facility] [address] [place] [address] Dr. Teja Monreal Platelet mean volume (Bld) [Entitic vol] 10.6 fL Normal 9.5-13.5 [facility] Comment on above: Performed By: #### C BC #### [facility] [address] [place] [address] Dr. Teja Monreal PLT 185 103/ul Normal 150-450 [facility] Comment on above: Performed By: #### C BC #### [facility] [address] [address] [address] Teja Monreal RBC 4.23 106/ul Critically low 4.70-6.10 [facility] Comment on above: Performed By: #### C BC #### [facility] [address] [address] [address] Teja Monreal WBC 5.6 103/ul Normal 4.0-11.0 [facility] Comment on above: Performed By: #### C BC #### [facility] [address] [address] [address] Teja Monreal FREE T3on 11-27-2021 FREE T3 2.14 pg/mlL Critically low 2.77-5.27 [facility] Comment on above: Performed By: #### F T3, LIPID, CMP, TSH, T4 #### [facility] [address] [address] [address] Teja Monreal GLYCOHEMOGLOBIN A1Con 2021 ADA RECOMMENDATION ADA THERAPEUTIC TARG ET 6.0 - 7.0 ACTION SUGGESTED > 7.0 Normal [facility] Comment on above: Performed By: #### A 1C #### [facility] [address] [place] [address] Dr. Teja Monreal Glucose [Mass/Vol] 143 mg/dL Normal [facility] Comment on above: Performed By: #### A 1C #### [facility] [address] [place] [address] Dr. Teja Monreal HbA1c (Bld) [Mass fraction] 6.6 % Critically high <=6.0 [facility] Comment on above: Performed By: #### A 1C #### [facility] [address] [place] [address] Dr. Teja Monreal LIPID PROFILEon 11-27-2021 CHOL-HDL RATIO NORM SEE BELOW Normal [facility] Comment on above: Result Comment: 3.3 - 4.4 LOW RISK 4.4 - 7.1 AVERAGE RISK 7.1 - 11.0 MODERATE RISK >11.0 HIGH RISK Performed By: #### F T3, LIPID, CMP, TSH, T4 #### [facility] [address] [address] [address] Teja Monreal Cholesterol [Mass/Vol] 116 mg/dL Normal <=200 [facility] Comment on above: Performed By: #### F T3, LIPID, CMP, TSH, T4 #### [facility] [address] [address] [address] Teja Monreal Cholesterol in HDL [Mass/Vol] 57 mg/dL Normal [facility] Comment on above: Performed By: #### F T3, LIPID, CMP, TSH, T4 #### [facility] [address] [address] [address] Teja Monreal Cholesterol in LDL [Mass/Vol] 40.4 mg/dL Normal [facility] Comment on above: Performed By: #### F T3, LIPID, CMP, TSH, T4 #### [facility] [address] [address] [address] Teja Monreal Cholesterol.total/C holesterol in HDL [Mass ratio] 2.0 {ratio} Normal [facility] Comment on above: Performed By: #### F T3, LIPID, CMP, TSH, T4 #### [facility] [address] [address] [address] Teja Monreal HDL NORMAL > or = 60 mg/dl - LO W CARDIOVASCULAR RISK <40 mg/dl - HIGH CARDIOVASCULAR RISK Normal [facility] Comment on above: Performed By: #### F T3, LIPID, CMP, TSH, T4 #### [facility] [address] [address] [address] Teja Monreal LDL CALC NORMAL SEE BELOW Normal [facility] Comment on above: Result Comment: <100 mg/dl OPTIMAL 100 - 129 mg/dl NEAR OR ABOVE OPTIMAL 130 - 159 mg/dl BORDERLINE HIGH 160 - 189 mg/dl HIGH >190 mg/dl VERY HIGH Performed By: #### F T3, LIPID, CMP, TSH, T4 #### [facility] [address] [address] [address] Teja Monreal Triglyceride [Mass/Vol] 93 mg/dL Normal <=150 [facility] Comment on above: Performed By: #### F T3, LIPID, CMP, TSH, T4 #### [facility] [address] [address] [address] Teja Monreal VLDL CALC 18.6 mg/dL Normal [facility] Comment on above: Performed By: #### F T3, LIPID, CMP, TSH, T4 #### [facility] [address] [address] [address] Teja Monreal PROF 14(COMP METB)on 022 Albumin [Mass/Vol] 4.4 g/dL Normal 3.5-5.[address] [facility] Comment on above: Performed By: #### F T3, LIPID, CMP, TSH, T4 #### [facility] [address] [place] [address] Dr. Teja Monreal Albumin/Globulin [Mass ratio] 1.4 {ratio} Normal [facility] Comment on above: Performed By: #### F T3, LIPID, CMP, TSH, T4 #### [facility] [address] [place] [place] [address] Dr. Teja Monreal ALP [Catalytic activity/Vol] 68 U/L Normal 38-126 [facility] Comment on above: Performed By: #### F T3, LIPID, CMP, TSH, T4 #### [facility] [address] [place] [address] Dr. Teja Monreal ALT [Catalytic activity/Vol] 40 U/L Normal 21-72 [facility] Comment on above: Performed By: #### F T3, LIPID, CMP, TSH, T4 #### [facility] [address] [place] [address] Dr. Teja Monreal Anion gap [Moles/Vol] 11.1 mmol/L Normal [facility] Comment on above: Performed By: #### F T3, LIPID, CMP, TSH, T4 #### [facility] [address] [place] [address] Dr. Teja Monreal AST [Catalytic activity/Vol] 31 U/L Normal 17-59 [facility] Comment on above: Performed By: #### F T3, LIPID, CMP, TSH, T4 #### [facility] [address] [address] [address] Teja Monreal Bilirubin [Mass/Vol] 0.5 mg/dL Normal 0.2-1.3 [facility] Comment on above: Performed By: #### F T3, LIPID, CMP, TSH, T4 #### [facility] [address] [address] [address] Teja Monreal Calcium [Mass/Vol] 9.3 mg/dL Normal 8.4-10.2 [facility] Comment on above: Performed By: #### F T3, LIPID, CMP, TSH, T4 #### [facility] [address] [address] [address] Teja Monreal Chloride [Moles/Vol] 100 mmol/L Normal 98-107 [facility] Comment on above: Performed By: #### F T3, LIPID, CMP, TSH, T4 #### [facility] [address] [address] [address] Teja Monreal CO2 [Moles/Vol] 32.0 mmol/L Critically high 22.0-30.0 [facility] Comment on above: Performed By: #### F T3, LIPID, CMP, TSH, T4 #### [facility] [address] [place] [address] Dr. Teja Monreal Creatinine [Mass/Vol] 1.35 mg/dL Critically high 0.66-1.25 [facility] Comment on above: Performed By: #### F T3, LIPID, CMP, TSH, T4 #### [facility] [address] [address] [address] Teja Monreal EGFR-AF TURKISH >60 Normal >=60 [facility] Comment on above: Performed By: #### F T3, LIPID, CMP, TSH, T4 #### [facility] [address] [place] [address] Dr. Teja Monreal EGFR-NON AF TURKISH 56 mL/min/1.73m2 Critically low >=60 [facility] Comment on above: Performed By: #### F T3, LIPID, CMP, TSH, T4 #### [facility] [address] [place] [address] Dr. Teja Monreal Globulin (S) [Mass/Vol] 3.1 g/dL Normal [facility] Comment on above: Performed By: #### F T3, LIPID, CMP, TSH, T4 #### [facility] [address] [address] [address] Teja Monreal Glucose [Mass/Vol] 129 mg/dL Critically high 74-106 [facility] Comment on above: Performed By: #### F T3, LIPID, CMP, TSH, T4 #### [facility] [address] [place] [address] Dr. Teja Monreal Potassium [Moles/Vol] 4.1 mmol/L Normal 3.4-5.0 [facility] Comment on above: Performed By: #### F T3, LIPID, CMP, TSH, T4 #### [facility] [address] [place] [address] Dr. Teja Monreal Protein [Mass/Vol] 7.5 g/dL Normal 6.1-8.[address] [facility] Comment on above: Performed By: #### F T3, LIPID, CMP, TSH, T4 #### [facility] [address] [address] [address] Teja Monreal Sodium [Moles/Vol] 139 mmol/L Normal 137-145 [facility] Comment on above: Performed By: #### F T3, LIPID, CMP, TSH, T4 #### [facility] [address] [address] [address] Teja Monreal Urea nitrogen [Mass/Vol] 16.0 mg/dL Normal 9.0-20.0 [facility] Comment on above: Performed By: #### F T3, LIPID, CMP, TSH, T4 #### [facility] [address] [address] [address] Teja Monreal Urea nitrogen/Creatinine [Mass ratio] 11.9 mg/mg Normal [facility] Comment on above: Performed By: #### F T3, LIPID, CMP, TSH, T4 #### [facility] [address] [address] [address] Teja Monreal T4on 11-27-2021 T4 [Mass/Vol] 9.10 ug/dL Normal 5.53-11.00 [facility] Comment on above: Performed By: #### F T3, LIPID, CMP, TSH, T4 #### [facility] [address] [address] [address] Teja Monreal TSHon 11-27-2021 TSH 0.989 uIU/mL Normal 0.470-4.680 [facility] Comment on above: Performed By: #### B CUSTOMER ASSISTANT #### [facility] [address] [address] [address] Teja Monreal TSH RANGE SEE BELOW Normal [facility] Comment on above: Result Comment: <0.3 4 UIU/ml HYPERTHYROID 0.34-5.60 UIU/ml EUTHYROID >5.60 UIU/ml HYPOTHYROID Performed By: #### B CUSTOMER ASSISTANT #### [facility] [address] [address] [address] Teja Monreal Basic Metabolic Panelon 10-0 Anion gap 3 molar conc 14 mmol/L Critically high 7-13 [facility] Calcium mass conc 8.4 mg/dL Low 8.6-10.2 [facility] Chloride molar conc 102 mmol/L Normal 98-107 [facility] CO2 molar conc 24 mmol/L Normal 22-29 [facility] Creatinine mass conc 0.81 mg/dL Normal 0.70-1.20 [facility] GFR/1.73 sq M predicted among blacks MDRD vol rate/area (S/P/Bld) mL/min/{1.73_m2} Normal >60 [facility] Comment on above: Result Comment: >60 mL/min/1.73m2 EGFR, calc. for ages 18 and older using theMDRD formula (not corrected for weight), is valid for stablerenal function. GFR/1.73 sq M.predicted MDRD vol rate/area mL/min/{1.73_m2} Normal >60 [facility] Comment on above: Result Comment: >60 mL/min/1.73m2 EGFR, calc. for ages 18 and older using theMDRD formula (not corrected for weight), is valid for stablerenal function. Glucose mass conc 104 mg/dL Normal 74-109 [facility] Potassium molar conc 3.7 mmol/L Normal 3.5-5.1 [facility] Sodium molar conc 140 mmol/L Normal 132-144 [facility] Urea nitrogen mass conc 6 mg/dL Normal 6-20 [facility] CBC With Platelet and Differ entialon 06-23-2018 Basophils Auto #/vol (Bld) 0.0 10*3/uL Normal 0.0-0.2 [facility] Basophils/100 WBC Auto (Bld) 0.4 % Normal [facility] Eosinophils Auto #/vol (Bld) 0.1 10*3/uL Normal 0.0-0.7 [facility] Eosinophils/100 WBC Auto (Bld) 0.8 % Normal [facility] Erythrocyte distribution width Auto Ratio (RBC) 13.3 % Normal 11.5-14.5 [facility] Hematocrit Auto Volume Fraction (Bld) 33.1 % Low 42.0-52.0 [facility] Hemoglobin mass conc (Bld) 11.5 g/dL Low 14.0-18.0 [facility] Lymphocytes Auto #/vol (Bld) 2.5 10*3/uL Normal 1.0-4.8 [facility] Lymphocytes/100 WBC Auto (Bld) 32.7 % Normal [facility] MCH Auto Entitic mass (RBC) 32.4 pg Critically high 27.0-31.3 [facility] MCHC Auto mass conc (RBC) 34.7 % Normal 33.0-37.0 [facility] MCV Auto Entitic volume (RBC) 93.6 fL Normal 80.0-100.0 [facility] Monocytes Auto #/vol (Bld) 0.8 10*3/uL Normal 0.2-0.8 [facility] Monocytes/100 WBC Auto (Bld) 10.0 % Normal [facility] Neutrophils Auto #/vol (Bld) 4.3 10*3/uL Normal 1.4-6.5 [facility] Neutrophils/100 WBC Auto (Bld) 56.1 % Normal [facility] Platelets Auto #/vol (Bld) 180 10*3/uL Normal 130-400 [facility] RBC Auto #/vol (Bld) 3.53 10*6/uL Low 4.70-6.10 [facility] WBC Auto #/vol (Bld) 7.7 10*3/uL Normal 4.8-10.8 [facility] POCT Glucoseon 06-23-2018 Glucose mass conc 155 mg/dL Critically high 60-115 [facility] POC Performed on ACCU-CHEK Normal [facility] CBC With Platelet No Differe ntialon 06-22-2018 Erythrocyte distribution width Auto Ratio (RBC) 13.1 % Normal 11.5-14.5 [facility] Hematocrit Auto Volume Fraction (Bld) 38.0 % Low 42.0-52.0 [facility] Hemoglobin mass conc (Bld) 12.9 g/dL Low 14.0-18.0 [facility] MCH Auto Entitic mass (RBC) 31.9 pg Critically high 27.0-31.3 [facility] MCHC Auto mass conc (RBC) 34.0 % Normal 33.0-37.0 [facility] MCV Auto Entitic volume (RBC) 93.8 fL Normal 80.0-100.0 [facility] Platelets Auto #/vol (Bld) 204 10*3/uL Normal 130-400 [facility] RBC Auto #/vol (Bld) 4.05 10*6/uL Low 4.70-6.10 [facility] WBC Auto #/vol (Bld) 5.8 10*3/uL Normal 4.8-10.8 [facility] FLUORO FOR SURGICAL PROCEDUR ESon 06-22-2018 FLUORO [...] ANTERIOR FUSION AND DISCECTOMY WITH INTERBODY FUSION.Interpreted by:Thierry Lagos by:Ketty Johnson MD06/22/18inal result Normal [facility] OPERATIVE REPORTon OPERATIVE REPORT [address] [address] OPERATIVE REPORTPATIENT NAME: JOSE TOWNSEND : 1970MED REC NO: [id number] ROOM:ACCOUNT NO: [id number] ADMIT DATE: 06/22/2018PROVIDER: Bradley Escalante, DOEATE OF PROCEDURE: 06/22/2018PREOPERATIVE DIAGNOSIS: Left C6-7 extruded [...] of the disk was cut with the Crow knife blade,entering into the disk space, using [...] reference SGF-037, [employer] plate 26-mm,#[id number], four bone screws, 16-mm [phone], Susana Peak5-degree #[id number], 8 mm x 12 x 14 mm.BRADLEY ESCALANTE, MDD: 06/22/2018 10:17:59 FRANKI/[id number]_IJob#: [id number] Doc#: [id number]: Normal [facility] POCT Glucoseon 06-22-2018 Glucose mass conc 165 mg/dL Critically high 60-115 [facility] POC Performed on ACCU-CHEK [facility] Glucose mass conc 119 mg/dL Critically high 60-115 [facility] POC Performed on ACCU-CHEK [facility] Glucose mass conc 129 mg/dL Critically high 60-115 [facility] POC Performed on ACCU-CHEK [facility] Basic Metabolic Panelon 09-2 Anion gap 3 molar conc 13 mmol/L Normal 7-13 [facility] Calcium mass conc 9.7 mg/dL Normal 8.6-10.2 [facility] Chloride molar conc 100 mmol/L Normal 98-107 [facility] CO2 molar conc 28 mmol/L Normal 22-29 [facility] Creatinine mass conc 0.72 mg/dL Normal 0.70-1.20 [facility] GFR/1.73 sq M predicted among blacks MDRD vol rate/area (S/P/Bld) mL/min/{1.73_m2} Normal >60 [facility] Comment on above: Result Comment: >60 mL/min/1.73m2 EGFR, calc. for ages 18 and older using theMDRD formula (not corrected for weight), is valid for stablerenal function. GFR/1.73 sq M.predicted MDRD vol rate/area mL/min/{1.73_m2} Normal >60 [facility] Comment on above: Result Comment: >60 mL/min/1.73m2 EGFR, calc. for ages 18 and older using theMDRD formula (not corrected for weight), is valid for stablerenal function. Glucose mass conc 146 mg/dL Critically high 74-109 [facility] Potassium molar conc 4.4 mmol/L Normal 3.5-5.1 [facility] Sodium molar conc 141 mmol/L Normal 132-144 [facility] Urea nitrogen mass conc 10 mg/dL Normal 6-20 [facility] Culture, MRSA Screenon 06-16 Culture, MRSA Screen ORDERED BY: NATALI ESCALANTE: Nares Nose COLLECTED: 06/16/18 14:25ANTIBIOTICS AT EZE.: RECEIVED : 06/16/18 14:25Culture, MRSA Screen FINAL 06/17/18 14:03 No MRSA isolated Normal [facility] Liver Panelon 06-16-2018 Albumin mass conc 5.1 g/dL Critically high 3.9-4.9 [facility] ALP enzyme act/vol 72 U/L Normal 35-104 [facility] ALT enzyme act/vol 50 U/L Critically high 0-41 [facility] AST enzyme act/vol 40 U/L Normal 0-40 [facility] Bilirubin Indirect see below Normal 0.0-0.6 [facility] Comment on above: Result Comment: Marlee rect Bilirubin cannot be calculated since Total Bilirubinand/or Direct Bilirubin is below measurable range. Bilirubin mass conc 0.4 mg/dL Normal 0.0-1.2 [facility] Bilirubin.direct mass conc mg/dL Normal 0.0-0.3 [facility] Protein mass conc 7.3 g/dL Normal 6.4-8.1 [facility] Partial Thromboplastin Timeo n 06-16-2018 aPTT Coag time (Bld) 27.7 s Normal 21.6-35.4 [facility] Comment on above: Order Comment: CBC c ancelled at 14:55 pm, 06/16/18 Result Comment: Hepa rin Therapeutic Range: 38.8 - 54.6 seconds. Prothrombin Timeon 8 INR Coag RelTime (PPP) 1.0 {INR} Normal [facility] Comment on above: Order Comment: CBC c [...] Coag time (PPP) 10.7 s Normal 9.6-12.3 [facility] Comment on above: Order Comment: CBC c ancelled at 14:55 pm, 06/16/18 Rejection Notificationon Rejected Test CBCND Normal [facility] Comment on above: Order Comment: CBC c ancelled at 14:55 pm, 06/16/18 Type and Screen Capture 3 sc rn cellon 06-16-2018 Bilirubin mass conc PATIENT: KRISTIAN Ovalle LOC: ARCELIA,BILL# : [id number] : 1970 SEX: MORDERED BY: ARRON HUERTA ORDERED : 06/16/2018 12:59 COLLECTED: 06/16/2018 14:25ORDER : [id number] RECEIVED : 06/16/2018 14:25 LAB: CBC cancelled at 14:55 pm, 06/16/18 TEST NAME RESULT UNITS RANGES ABN FL STABORH Capture O POS FAntibody 3 Cell Scrn Captu NEG F --- Normal [facility] Urinalysis, reflex to cultur tova 06-16-2018 Bilirubin Ql (U) Negative Normal Negative [facility] Color Nom (U) Yellow Normal Straw/Ector [facility] Glucose Ql (U) 100 mg/dL Abnormal Negative [facility] Hemoglobin Test strip Ql (U) Negative Normal Negative [facility] Ketones Ql (U) Negative Normal Negative [facility] Leukocyte esterase Test strip Ql (U) Negative Normal Negative [facility] Nitrite Test strip Ql (U) Negative Normal Negative [facility] pH Test strip (U) 6.5 [pH] Normal 5.0-9.0 [facility] Protein Test strip Ql (U) Negative Normal Negative [facility] Specific gravity Relative Density (U) 1.015 Normal 1.005-1.03 [facility] Urine Reflexed to Culture Not Indicated Normal [facility] Urobilinogen Test strip Qn (U) 0.2 {Stephanie'U}/dL Normal < 2.0 [facility] Clarity Nom (U) Clear Normal Clear [facility] Vital Signs Date Time Vital Sign Value Performing Clinician Facility 03-18-2024 15:09-0400 Body height 165.1 cm [facility] 03-18-2024 15:09-0400 Body mass index (BMI) [Ratio] 33.7 kg/m2 [facility] 03-18-2024 15:09-0400 Body weight 91.85 kg [facility] 03-18-2024 15:09-0400 Diastolic blood pressure 85 mm[Hg] [facility] 03-18-2024 15:09-0400 Heart rate 95 /min [facility] 03-18-2024 15:09-0400 Respiratory rate 18 /min [facility] 03-18-2024 15:09-0400 SaO2% (BldA) [Mass fraction] 98 % [facility] 03-18-2024 15:09-0400 Systolic blood pressure 131 mm[Hg] [facility] 01-21-2024 16:00-0400 Body height 165.1 cm [facility] 01-21-2024 16:00-0400 Body mass index (BMI) [Ratio] 33.7 kg/m2 [facility] 01-21-2024 16:00-0400 Body weight 92.13 kg [facility] 01-21-2024 16:00-0400 Diastolic blood pressure 84 mm[Hg] [facility] 01-21-2024 16:00-0400 Heart rate 85 /min [facility] 01-21-2024 16:00-0400 Respiratory rate 18 /min [facility] 01-21-2024 16:00-0400 SaO2% (BldA) [Mass fraction] 99 % [facility] 01-21-2024 16:00-0400 Systolic blood pressure 131 mm[Hg] [facility] 11-27-2023 15:29-0500 Body height 165.1 cm [facility] 11-27-2023 15:29-0500 Body mass index (BMI) [Ratio] 34.7 kg/m2 [facility] 11-27-2023 15:29-0500 Body weight 94.48 kg [facility] 11-27-2023 15:29-0500 Diastolic blood pressure 93 mm[Hg] [facility] 11-27-2023 15:29-0500 Heart rate 92 /min [facility] 11-27-2023 15:29-0500 Respiratory rate 18 /min [facility] 11-27-2023 15:29-0500 SaO2% (BldA) [Mass fraction] 98 % [facility] 11-27-2023 15:29-0500 Systolic blood pressure 141 mm[Hg] [facility] 09-10-2023 16:15-0500 Body height 165.1 cm Deven Beckham Other [employer] [facility] [employer] Other 09-10-2023 16:15-0500 Body mass index (BMI) [Ratio] 35.29 kg/m2 Deven Beckham Other [employer] Other 09-10-2023 16:15-0500 Body weight 96.21 kg Deven Beckham Other [employer] Other 09-10-2023 16:15-0500 Diastolic blood pressure 95 mm[Hg] Deven Beckham Other [employer] Other 09-10-2023 16:15-0500 Respiratory rate 18 /min Deven Beckham Other [employer] Other 09-10-2023 16:15-0500 SaO2% (BldA) [Mass fraction] 99 % Deven Beckham Other [employer] Other 09-10-2023 16:15-0500 Systolic blood pressure 136 mm[Hg] Deven Beckham Other [employer] Other 07-16-2023 15:45-0400 Body height 165.1 cm Deven Beckham Other [employer] Other 07-16-2023 15:45-0400 Body mass index (BMI) [Ratio] 35.64 kg/m2 Deven Beckham Other [employer] Other 07-16-2023 15:45-0400 Body weight 97.16 kg Deven Beckham Other [employer] Other 07-16-2023 15:45-0400 Diastolic blood pressure 79 mm[Hg] Deven Beckham Other [employer] Other 07-16-2023 15:45-0400 Respiratory rate 18 /min Deven Beckham Other [employer] Other 07-16-2023 15:45-0400 SaO2% (BldA) [Mass fraction] 98 % Deven Fordediff Other [employer] Other 07-16-2023 15:45-0400 Systolic blood pressure 116 mm[Hg] Deven Fordediff Other [employer] Other 06-03-2023 14:30-0400 Body height 165.1 cm Deven Fordediff Other [employer] Other 06-03-2023 14:30-0400 Body mass index (BMI) [Ratio] 36.29 kg/m2 Deven Fordediff Other [employer] Other 06-03-2023 14:30-0400 Body weight 98.93 kg Deven Fordediff Other [employer] Other 06-03-2023 14:30-0400 Diastolic blood pressure 85 mm[Hg] Deven Beckham Other [employer] Other 06-03-2023 14:30-0400 Respiratory rate 18 /min Deven Beckham Other [employer] Other 06-03-2023 14:30-0400 SaO2% (BldA) [Mass fraction] 99 % Deven Beckham Other [employer] Other 06-03-2023 14:30-0400 Systolic blood pressure 119 mm[Hg] Deven Beckham Other [employer] Other 04-16-2023 14:45-0400 Body height 165.1 cm Deven Beckham Other [employer] Other 04-16-2023 14:45-0400 Body mass index (BMI) [Ratio] 37.22 kg/m2 Deven Beckham Other [employer] Other 04-16-2023 14:45-0400 Body weight 101.47 kg Deven Beckham Other [employer] Other 04-16-2023 14:45-0400 Diastolic blood pressure 81 mm[Hg] Deven Beckham Other [employer] Other 04-16-2023 14:45-0400 Respiratory rate 18 /min Deven Beckham Other [employer] Other 04-16-2023 14:45-0400 SaO2% (BldA) [Mass fraction] 96 % Deven Beckham Other [employer] Other 04-16-2023 14:45-0400 Systolic blood pressure 125 mm[Hg] Deven Fordediff Other [employer] Other 01-01-2023 15:00-0400 Body height 165.1 cm Deven Beckham Other [employer] Other 01-01-2023 15:00-0400 Body mass index (BMI) [Ratio] 38.39 kg/m2 Deven Fordediff Other [employer] Other 01-01-2023 15:00-0400 Body weight 104.65 kg Deven Fordediff Other [employer] Other 01-01-2023 15:00-0400 Diastolic blood pressure 81 mm[Hg] Deven Chapincito Other [employer] Other 01-01-2023 15:00-0400 Respiratory rate 18 /min Deven Fordediff Other [employer] Other 01-01-2023 15:00-0400 SaO2% (BldA) [Mass fraction] 99 % Deven Fordediff Other [employer] Other 01-01-2023 15:00-0400 Systolic blood pressure 125 mm[Hg] Deven Fordediff Other [employer] Other Encounters Encounter Date Encounter Type Care Provider Facility Start: 03-18-2024 End: 03-18-2024 ambulatory [facility] Work Phone: Start: 03-18-2024 End: 03-18-2024 Patient encounter procedure [facility] Work Phone: Start: 01-21-2024 End: 01-21-2024 Patient encounter procedure [facility] Work Phone: Start: 11-28-2023 Non-patient / Non-visit [facility] Work Phone: Start: 11-27-2023 End: 11-27-2023 Patient encounter procedure [facility] Work Phone: Start: 10-21-2023 End: 10-21-2023 ambulatory Deven Beckham Other [employer] Other Start: 10-21-2023 Encounter by oscar Pratherraj Beckham [facility] Start: 10-15-2023 End: 10-15-2023 ambulatory [facility] Start: 09-11-2023 End: 09-11-2023 ambulatory Steffen Sam [employer] Other Start: 09-11-2023 Nursing evaluation o f patient and report Deven Beckham [facility] Start: 09-10-2023 End: 09-10-2023 ambulatory Devenraj Fordediff Other [employer] Other Start: 09-10-2023 Follow-up encounter Deven Beckham [facility] Start: 09-09-2023 End: 09-09-2023 ambulatory Deven Beckham Other [employer] Other Start: 09-09-2023 Telephone encounter [facility] Start: 07-16-2023 End: 07-16-2023 ambulatory Deven Beckham Other [employer] Other Start: 07-16-2023 Follow-up encounter Deven Beckham [facility] Start: 06-03-2023 End: 06-03-2023 ambulatory Deven Beckham Other [employer] Other Start: 06-03-2023 Follow-up encounter [facility]en [facility] Start: 05-23-2023 End: 05-23-2023 ambulatory Deven Beckham Other [employer] Other Start: 05-23-2023 Encounter by miLibris r Eve Deven Beckham [facility] Start: 05-02-2023 End: 05-02-2023 ambulatory Deven Fordediff Other [employer] Other Start: 05-02-2023 Encounter by BTIG Deven Beckham [facility] Start: 04-16-2023 End: 04-16-2023 ambulatory Deven Fordediff Other [employer] Other Start: 04-16-2023 Follow-up encounter Deven Fordediadriana pinedo [facility] Start: 04-03-2023 ambulatory Facility:[facility] Start: 04-02-2023 ambulatory Facility:[facility] Start: 04-01-2023 Telephone encounter [facility]en [facility] Start: 04-01-2023 End: 04-01-2023 [facility] Start: 01-13-2023 End: 01-13-2023 ambulatory Deven Beckham Other [employer] Other Start: 01-13-2023 Telephone encounter Devenraj Fordediadriana pinedo [facility] Start: 01-01-2023 End: 01-01-2023 ambulatory Devenraj Fordediff Other [employer] Other Start: 01-01-2023 Nutrition therapy Deven ordonez [facility] Start: 07-26-2022 End: 07-27-[address] STEFFEN SAM Facility:[facility] Start: 02-22-[address] STEFFEN SAM Facility :[facility] Start: 11-29-2021 Encounter for genera l adult medical examination without abnormal findings DR STEFFEN SMA [facility] Start: 11-28-2021 End: 11-28-[address] STEFFEN SAM Facility:[facility] Start: 11-28-2021 End: 11-28-2021 Encounter for general adult medical examination without abnormal findings DR STEFFEN SAM Facility:[facility] Start: 11-27-2021 End: 11-28-[address] STEFFEN SAM Facility:[facility] Start: 06-22-2018 End: 06-23-2018 Patient encounter BRADLEY Reyes [facility] Start: 06-16-2018 End: 06-21-2018 Patient [facility] Start: 11-18-2016 End: 11-30-2016 Ambulatory STEFFEN SAM Facility:[facility] Procedures Date Procedure Procedure Detail Performing Clinician Start: 11-27-[address] JASWINDER SAM Comment on above: Performed By: #### P SAD #### [facility] [address] [place] [address] Dr. Teja Monreal Start: 06-23-2018 POCT GLUCOSE [...] G DARIUS ARRON Start: 06-22-2018 AMBULATE PATIENT GALE H AZEN Start: 06-22-2018 ENCOURAGE DEEP BREAT DILSHAD AND COUGHING GALE ARRON Start: 06-22-2018 FULL CODE GALE ARRON Start: 06-22-2018 INITIATE OXYGEN THER APY PROTOCOL GALE ARRON Start: 06-22-2018 MISCELLANEOUS NURSIN G CARE ORDER (SPECIFY) BRADLEY ESCALANTE Start: 06-22-2018 NEURO/VASCULAR CHECKS G DARIUS ESCALANTE Start: 06-22-2018 NURSING COMMUNICATION G DARIUS ESCALANTE Start: 06-22-2018 PLACE INTERMITTENT P NEUMATIC COMPRESSION DEVICE GALOlvin ARRON Start: 06-22-2018 VITAL SIGNS GALOlvin ARRON Start: 06-22-2018 WOUND CARE GALOlvin ARRON Start: 06-22-2018 IP CONSULT TO HOSPITALIST BRADLEY ESCALANTE Start: 06-22-2018 DIET CARB CONTROL GALE ARRON Start: 06-22-2018 POCT GLUCOSE GALE ARRON Start: 06-22-2018 DISCHARGE PATIENT GALOlvin ESCALANTE Start: 06-22-2018 PATIENT STATUS (FROM ED OR OR/PROCEDURAL) GALE ARRON Start: 06-22-2018 TRANSFER PATIENT BRADLEY LANZA Start: 06-22-2018 FLUORO FOR SURGICAL PROCEDURES GALOlvin ARRON Start: 06-22-2018 Blood count complete automated GALOlvin ESCALANTE Start: 06-22-2018 POCT GLUCOSE GALOlvin ESCALANTE Start: 06-16-2018 Drug tst prsmv instr mnt chem analyzers pr date GALE ARRON Start: 06-16-2018 Basic metabolic pane l calcium total GALE ARRON Start: 06-16-2018 Hepatic function panel GALE ARRON Start: 06-16-2018 URINE RT REFLEX TO CULTURE GALE ARRON Start: 06-16-2018 Cul prsmptv pthgnc o rganism scrn w/colony estimj GALE ARRON Start: 06-16-2018 Prothrombin time GALE H AZMARIELLE Start: 06-16-2018 Thromboplastin time partial plasma/whole blood GALE ARRON Start: 06-16-2018 TYPE AND SCREEN GALE VELASCO VERONICA Start: 06-16-2018 EKG 12-LEAD GALE ARRON Payers Date Payer Category Payer Unknown [id number] 2.16.8 [id number] 1970 Unknown [id number] 2.16.8 [id number] 1970 Unknown [id number] 2.16.84 [id number] 1971 Unknown [id number] 2.16.84 [id number] 1971 Unknown [id number] 2.16.84 [id number] 1971 Unknown [id number] 2.16.84 [id number] 1971 Unknown [id number] 2.16.8 [id number] 1958 Self-pay 1958 Unknown [id number] Unknown [facility] [id number] Unknown [id number] 2.16.8 [id number] Social History Date Type Detail Facility Sex Assigned At [employer] Other Start: 1970 Sex Assigned At Male F [facility] Clinical Notes 01-01-2023 to 01-21-2024 Note Date & Type Note Facility 01-21-2024 Evaluation note Authored January 21, 2024 5:20pm Start weight: 230.7 lbs. He is down 27.5 lbs.today with a weight of 203.2 lbs. He is down 5.3 lbs. since 11/27/2023 Starting Date: 01-01-2023. Victoza was stopped and Ozempic was started when he started the program. 1. Abnormal weight gain. He denies a strong family history of obesity. He notes his sister has similar problems. His dad and grandparents were type II diabetics. He notes his dad did not have weight problems but also did use alcohol. 2. Obesity-improved since starting our program, drinking significantly less alcohol now 2 drinks a day with adding naltrexone and trying to cut back, going to bed earlier, and eating less eating junk food on Ozempic 2 mg. His A1c is controlled at 6.3. He did suffer from a significant decrease B12 level at 121 while on metformin to 2000 mg and is taking B12 2500 mcg daily and now up to 908. He started our program on 1.2 mg Victoza and Actos 30 mg which we have been able to stop. We continuing naltrexone to help him to continue to restrict his alcohol intake as long as his LFTs do not go up. He feels has been helpful to help decrease his alcohol intake further. He should continue to treat with long-term lifestyle changes of improved nutrition, increased exercise and activity, stress reduction, adequate sleep and behavioral modification versus short-term dieting. Behavioral: The patient's previous eating habits prior to starting our program poor. Before starting the program the biggest reasons for weight struggles include unhealthy diet, unhealthy snacks, late night snacking, skip breakfast, skip lunch, poor meal/ snack planning, lack of exercise. Exercise before starting the program: no. He is now walking 3 to 4 miles every morning. He notes he did not really have issues with his weight till he was about [age]. He had been a heavy drinker since age 17. Before starting the program, he had a tendency to use 6-10 drinks a day. It was because of the calories he went to a diet soda and alcohol. Before starting the program he did not measure his alcohol and it was a shot. He notes in October he cut back/minimize his alcohol intake. He notes in the past with following a DoublePositive diet and not drinking for a year he was able to get back down to about 160 pounds. He notes he does have a strong family history of alcohol issues in his mom's brothers. He has never had treatment for alcohol or alcohol related issues. 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 Before starting our program he would stay up later in the evening but tries to get the bed by midnight but may stay up till 2 AM. He feels that his BiPAP machine tells him that he normally gets 6 to 8 hours of sleep at night. His New Roads was 10 despite being on BiPAP. He has type 2 diabetes and his PCP had him on Victoza 1.2 mg, metformin 2000 mg and Actos 30 mg before starting the program. His last A1c was 6.6 followed by his PCP. His Gaviota is doing our program and she is on Ozempic. He notes it was just him and his at home but now his son and their niece have moved in. He plans on continuing to cut back his alcohol intake at this point trying to get healthier. He notes he had an issue with some chest pain and some irregular heartbeats but he notes he had a normal heart catheterization a few years ago. He is on metoprolol because of this. He does not know of any known heart disease diagnosis. He does have neuropathy requiring gabapentin for his diabetes which can cause some weight gain. He has an ALT of 40 and has known underlying fatty liver. His last creatinine was 1.35 with a GFR 56. He denies problems with depression and his PHQ-9 score was 0 and starting our program. We will try to avoid Topamax as he does have history of kidney stones. 3. Obstructive sleep apnea requiring BiPAP. New Roads of 10 with starting the program. Treat with healthy lifestyle changes, good sleep hygiene and weight loss. Recommend he not stay up late at night. 4. Type 2 diabetes-improved/controlled with A1c of 6.6 with starting the program now down to 6.0. We discussed this could worsen his neuropathy and risk of heart disease. We stopped his Victoza 1.2 mg. Continue Ozempic. Consider SGLT2 inhibitor. At this point he will continue metformin 2000 mg. Actos 30 mg but he does have some edema, but the edema was already improving with our program. He understands that first-line treatment is with lifestyle changes, decrease simple sweets and starches, increase exercise and weight loss. 5. Hypertension-now well controlled on 3 medications. Hopefully we can cut the medication down her back in the future with minimizing or stopping alcohol and healthy lifestyle change. He will treat with a low-salt diet, decreased processed and restaurant foods, healthy lifestyle changes and achieve long-term weight loss. Monitor outside the office. 6. History of chest pain and irregular heartbeat-he notes he has been fine on metoprolol and he states that his recent heart cath was negative. I do not have results of this cath. Treat with healthy lifestyle changes and weight loss to minimize risk factors. GLP-1's can minimize risk. 7. Peripheral neuropathy-most likely diabetic in nature but could be worsened by alcohol. We will try to more tightly control his diabetes healthy lifestyle changes and switching to Ozempic. 8. Fatty liver-which may be related to alcohol and/or poor diet/abdominal obesity/lack of exercise. Recent increase in liver function test before starting naltrexone. He should continue to treat with long-term healthy lifestyle changes and weight loss. He should continue to at least minimize his alcohol intake. 9. Alcohol use-he was drinking between 6-10 alcoholic beverages a day but notes that he has now cut back to more social use. We continuing naltrexone. He understands that his liver function tests are worsening. We discussed the liver is the only organ that can metabolize the alcohol and the risk of any alcohol use but especially more than 1 or 2 beverages in a days time. 10. CKD 3 with creatinine of 1.35 and GFR 56.-Increase water intake. Monitor. Control blood pressure and diabetes. 11. Mixed hyperlipidemia-controlled. Continue to treat with statin, decreasing the simple sweets, added sugars, refined starches, and bad/added fats, increasing activity and exercise and continued long-term weight loss. 12. History of nephrolithiasis-increase water intake. 13. Vitamin B12 deficiency with a level of 121 on metformin 2000 mg a day. At that time we gave him a initial B12 shot x 2 and then continue B12 2500 mcg daily and closely monitor his B12 level with his last level up to 908. He will need lifelong replacement while on metformin. 14. Metabolic syndrome-treat with long-term healthy lifestyle changes, behavioral changes, healthy nutritional changes, increased activity and exercise and achieve long-term weight loss. Follow up with me in 6 weeks. New labs needed: Up-to-date. Recheck A1c again after 2024. Repeat B12 level, fasting cholesterol profile and CMP also in months. Author [facility] Authored March 18, 2024 3:34 pm Start weight: 230.7 lbs. He is down 27.9 lbs. today with a weight of 202.8 lbs. He is down 0.4 lbs. since 01/21/2024 Starting Date: 01-01-2023. Victoza was stopped and Ozempic was started when he started the program. 1. Abnormal weight gain. He denies a strong family history of obesity. He notes his sister has similar problems. His dad and grandparents were type II diabetics. He notes his dad did not have weight problems but also did use alcohol. 2. Obesity-improved since starting our program, drinking significantly less alcohol now 2 drinks a day with adding naltrexone and trying to cut back, going to bed earlier, and eating less eating junk food on Ozempic 2 mg. His A1c is controlled at 6.3. He did suffer from a significant decrease B12 level at 121 while on metformin to 2000 mg and is taking B12 2500 mcg daily and now up to 908. He started our program on 1.2 mg Victoza and Actos 30 mg which we have been able to stop. We continuing naltrexone to help him to continue to restrict his alcohol intake as long as his LFTs do not go up. He feels has been helpful to help decrease his alcohol intake further. He should continue to treat with long-term lifestyle changes of improved nutrition, increased exercise and activity, stress reduction, adequate sleep and behavioral modification versus short-term dieting. Behavioral: The patient's previous eating habits prior to starting our program poor. Before starting the program the biggest reasons for weight struggles include unhealthy diet, unhealthy snacks, late night snacking, skip breakfast, skip lunch, poor meal/ snack planning, lack of exercise. Exercise before starting the program: no. He is now walking 3 to 4 miles every morning. He notes he did not really have issues with his weight till he was about 36-40. He had been a heavy drinker since age 17. Before starting the program, he had a tendency to use 6-10 drinks a day. It was because of the calories he went to a diet soda and alcohol. Before starting the program he did not measure his alcohol and it was a shot. He notes in October he cut back/minimize his alcohol intake. He notes in the past with following a DoublePositive diet and not drinking for a year he was able to get back down to about 160 pounds. He notes he does have a strong family history of alcohol issues in his mom's brothers. He has never had treatment for alcohol or alcohol related issues. 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 Before starting our program he would stay up later in the evening but tries to get the bed by midnight but may stay up till 2 AM. He feels that his BiPAP machine tells him that he normally gets 6 to 8 hours of sleep at night. His New Roads was 10 despite being on BiPAP. He has type 2 diabetes and his PCP had him on Victoza 1.2 mg, metformin 2000 mg and Actos 30 mg before starting the program. His last A1c was 6.6 followed by his PCP. His Gaviota is doing our program and she is on Ozempic. He notes it was just him and his at home but now his son and their niece have moved in. He plans on continuing to cut back his alcohol intake at this point trying to get healthier. He notes he had an issue with some chest pain and some irregular heartbeats but he notes he had a normal heart catheterization a few years ago. He is on metoprolol because of this. He does not know of any known heart disease diagnosis. He does have neuropathy requiring gabapentin for his diabetes which can cause some weight gain. He has an ALT of 40 and has known underlying fatty liver. His last creatinine was 1.35 with a GFR 56. He denies problems with depression and his PHQ-9 score was 0 and starting our program. We will try to avoid Topamax as he does have history of kidney stones. 3. Obstructive sleep apnea requiring BiPAP. New Roads of 10 with starting the program. Treat with healthy lifestyle changes, good sleep hygiene and weight loss. Recommend he not stay up late at night. 4. Type 2 diabetes-improved/controlled with A1c of 6.6 with starting the program now down to 6.0. We discussed this could worsen his neuropathy and risk of heart disease. We stopped his Victoza 1.2 mg. Continue Ozempic. Consider SGLT2 inhibitor. At this point he will continue metformin 2000 mg. Actos 30 mg but he does have some edema, but the edema was already improving with our program. He understands that first-line treatment is with lifestyle changes, decrease simple sweets and starches, increase exercise and weight loss. 5. Hypertension-now well controlled on 3 medications. Hopefully we can cut the medication down her back in the future with minimizing or stopping alcohol and healthy lifestyle change. He will treat with a low-salt diet, decreased processed and restaurant foods, healthy lifestyle changes and achieve long-term weight loss. Monitor outside the office. 6. History of chest pain and irregular heartbeat-he notes he has been fine on metoprolol and he states that his recent heart cath was negative. I do not have results of this cath. Treat with healthy lifestyle changes and weight loss to minimize risk factors. GLP-1's can minimize risk. 7. Peripheral neuropathy-most likely diabetic in nature but could be worsened by alcohol. We will try to more tightly control his diabetes healthy lifestyle changes and switching to Ozempic. 8. Fatty liver-which may be related to alcohol and/or poor diet/abdominal obesity/lack of exercise. Recent increase in liver function test before starting naltrexone. He should continue to treat with long-term healthy lifestyle changes and weight loss. He should continue to at least minimize his alcohol intake. 9. Alcohol use-he was drinking between 6-10 alcoholic beverages a day but notes that he has now cut back to more social use. We continuing naltrexone. He understands that his liver function tests are worsening. We discussed the liver is the only organ that can metabolize the alcohol and the risk of any alcohol use but especially more than 1 or 2 beverages in a days time. 10. CKD 3 with creatinine of 1.35 and GFR 56.-Increase water intake. Monitor. Control blood pressure and diabetes. 11. Mixed hyperlipidemia-controlled. Continue to treat with statin, decreasing the simple sweets, added sugars, refined starches, and bad/added fats, increasing activity and exercise and continued long-term weight loss. 12. History of nephrolithiasis-increase water intake. 13. Vitamin B12 deficiency with a level of 121 on metformin 2000 mg a day. At that time we gave him a initial B12 shot x 2 and then continue B12 2500 mcg daily and closely monitor his B12 level with his last level up to 908. He will need lifelong replacement while on metformin. 14. Metabolic syndrome-treat with long-term healthy lifestyle changes, behavioral changes, healthy nutritional changes, increased activity and exercise and achieve long-term weight loss. Follow up with me in 6 weeks. New labs needed: Up-to-date. Recheck A1c again after 2024. Repeat B12 level, fasting cholesterol profile and CMP also in months. [facility] Work Phone: [phone] Evaluation note* Author Deven [facility] Authored November 27, 2023 5:58 pm Start weight: 230.7 lbs. He is down 22.2 lbs.today with a weight of 208.5lbs. He is down 3.6 lbs. since 09/13/2023 Starting Date: 01-01-2023. Victoza was stopped and Ozempic was started when he started the program. 1. Abnormal weight gain. He denies a strong family history of obesity. He notes his sister has similar problems. His dad and grandparents were type II diabetics. He notes his dad did not have weight problems but also did use alcohol. 2. Obesity-improved since starting our program, drinking significantly less alcohol with now with naltrexone without side effects, going to bed earlier, eating less eating junk food on Ozempic 2 mg. His last A1c was down to 6.0. He does suffer from a significant decrease B12 level at 121 while on metformin to 2000 mg and is taking B12 2500 mcg daily. He started our program on 1.2 mg Victoza and Actos 30 mg which we have been able to stop. We continuing naltrexone to help him to continue to restrict his alcohol intake as long as his LFTs do not go up. He feels has been helpful to help decrease his alcohol intake further. He should continue to treat with long-term lifestyle changes of improved nutrition, increased exercise and activity, stress reduction, adequate sleep and behavioral modification versus short-term dieting. Behavioral: The patient's previous eating habits prior to starting our program poor. Before starting the program the biggest reasons for weight struggles include unhealthy diet, unhealthy snacks, late night snacking, skip breakfast, skip lunch, poor meal/ snack planning, lack of exercise. Exercise before starting the program: no. He is now walking 3 to 4 miles every morning. He notes he did not really have issues with his weight till he was about 36-40. He had been a heavy drinker since age 17. Before starting the program, he had a tendency to use 6-10 drinks a day. It was because of the calories he went to a diet soda and alcohol. Before starting the program he did not measure his alcohol and it was a shot. He notes in October he cut back/minimize his alcohol intake. He notes in the past with following a DoublePositive diet and not drinking for a year he was able to get back down to about 160 pounds. He notes he does have a strong family history of alcohol issues in his mom's brothers. He has never had treatment for alcohol or alcohol related issues. 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 Before starting our program he would stay up later in the evening but tries to get the bed by midnight but may stay up till 2 AM. He feels that his BiPAP machine tells him that he normally gets 6 to 8 hours of sleep at night. His New Roads was 10 despite being on BiPAP. He has type 2 diabetes and his PCP had him on Victoza 1.2 mg, metformin 2000 mg and Actos 30 mg before starting the program. His last A1c was 6.6 followed by his PCP. His Gaviota is doing our program and she is on Ozempic. He notes it was just him and his at home but now his son and their niece have moved in. He plans on continuing to cut back his alcohol intake at this point trying to get healthier. He notes he had an issue with some chest pain and some irregular heartbeats but he notes he had a normal heart catheterization a few years ago. He is on metoprolol because of this. He does not know of any known heart disease diagnosis. He does have neuropathy requiring gabapentin for his diabetes which can cause some weight gain. He has an ALT of 40 and has known underlying fatty liver. His last creatinine was 1.35 with a GFR 56. He denies problems with depression and his PHQ-9 score was 0 and starting our program. We will try to avoid Topamax as he does have history of kidney stones. 3. Obstructive sleep apnea requiring BiPAP. New Roads of 10 with starting the program. Treat with healthy lifestyle changes, good sleep hygiene and weight loss. Recommend he not stay up late at night. 4. Type 2 diabetes-improved/controlled with A1c of 6.6 with starting the program now down to 6.0. We discussed this could worsen his neuropathy and risk of heart disease. We stopped his Victoza 1.2 mg. Continue Ozempic. Consider SGLT2 inhibitor. At this point he will continue metformin 2000 mg. Actos 30 mg but he does have some edema, but the edema was already improving with our program. He understands that first-line treatment is with lifestyle changes, decrease simple sweets and starches, increase exercise and weight loss. 5. Hypertension-borderline/incompletely controlled on 3 medications. Hopefully we can cut the medication down her back in the future with minimizing or stopping alcohol and healthy lifestyle change. He will treat with a low-salt diet, decreased processed and restaurant foods, healthy lifestyle changes and achieve long-term weight loss. Monitor outside the office. 6. History of chest pain and irregular heartbeat-he notes he has been fine on metoprolol and he states that his recent heart cath was negative. I do not have results of this cath. Treat with healthy lifestyle changes and weight loss to minimize risk factors. GLP-1's can minimize risk. 7. Peripheral neuropathy-most likely diabetic in nature but could be worsened by alcohol. We will try to more tightly control his diabetes healthy lifestyle changes and switching to Ozempic. 8. Fatty liver-which may be related to alcohol and/or poor diet/abdominal obesity/lack of exercise. Recent increase in liver function test before starting naltrexone. He should continue to treat with long-term healthy lifestyle changes and weight loss. He should continue to at least minimize his alcohol intake. 9. Alcohol use-he was drinking between 6-10 alcoholic beverages a day but notes that he has now cut back to more social use. We are starting naltrexone. He understands that his liver function tests are worsening. We discussed the liver is the only organ that can metabolize the alcohol and the risk of any alcohol use but especially more than 1 or 2 beverages in a days time. 10. CKD 3 with creatinine of 1.35 and GFR 56.-Increase water intake. Monitor. Control blood pressure and diabetes. 11. Mixed hyperlipidemia-controlled. Continue to treat with statin, decreasing the simple sweets, added sugars, refined starches, and bad/added fats, increasing activity and exercise and continued long-term weight loss. 12. History of nephrolithiasis-increase water intake. 13. Vitamin B12 deficiency with a level of 121 on metformin 2000 mg a day. At that time we gave him a initial B12 shot x 2 and then continue B12 2500 mcg daily and closely monitor his B12 level. 14. metabolic syndrome-treat with long-term healthy lifestyle changes, behavioral changes, healthy nutritional changes, increased activity and exercise and achieve long-term weight loss. Follow up with me in 6 weeks. New labs needed: Up-to-date except he needs a B12 level and fasting CMP AL[facility]. Author Deven [facility] Authored January 21, 2024 5:20pm Start weight: 230.7 lbs. He is down 27.5 lbs.today with a weight of 203.2 lbs. He is down 5.3 lbs. since 11/27/2023 Starting Date: 01-01-2023. Victoza was stopped and Ozempic was started when he started the program. 1. Abnormal weight gain. He denies a strong family history of obesity. He notes his sister has similar problems. His dad and grandparents were type II diabetics. He notes his dad did not have weight problems but also did use alcohol. 2. Obesity-improved since starting our program, drinking significantly less alcohol now 2 drinks a day with adding naltrexone and trying to cut back, going to bed earlier, and eating less eating junk food on Ozempic 2 mg. His A1c is controlled at 6.3. He did suffer from a significant decrease B12 level at 121 while on metformin to 2000 mg and is taking B12 2500 mcg daily and now up to 908. He started our program on 1.2 mg Victoza and Actos 30 mg which we have been able to stop. We continuing naltrexone to help him to continue to restrict his alcohol intake as long as his LFTs do not go up. He feels has been helpful to help decrease his alcohol intake further. He should continue to treat with long-term lifestyle changes of improved nutrition, increased exercise and activity, stress reduction, adequate sleep and behavioral modification versus short-term dieting. Behavioral: The patient's previous eating habits prior to starting our program poor. Before starting the program the biggest reasons for weight struggles include unhealthy diet, unhealthy snacks, late night snacking, skip breakfast, skip lunch, poor meal/ snack planning, lack of exercise. Exercise before starting the program: no. He is now walking 3 to 4 miles every morning. He notes he did not really have issues with his weight till he was about [age]. He had been a heavy drinker since age 17. Before starting the program, he had a tendency to use 6-10 drinks a day. It was because of the calories he went to a diet soda and alcohol. Before starting the program he did not measure his alcohol and it was a shot. He notes in October he cut back/minimize his alcohol intake. He notes in the past with following a DoublePositive diet and not drinking for a year he was able to get back down to about 160 pounds. He notes he does have a strong family history of alcohol issues in his mom's brothers. He has never had treatment for alcohol or alcohol related issues. 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 Before starting our program he would stay up later in the evening but tries to get the bed by midnight but may stay up till 2 AM. He feels that his BiPAP machine tells him that he normally gets 6 to 8 hours of sleep at night. His New Roads was 10 despite being on BiPAP. He has type 2 diabetes and his PCP had him on Victoza 1.2 mg, metformin 2000 mg and Actos 30 mg before starting the program. His last A1c was 6.6 followed by his PCP. His Gaviota is doing our program and she is on Ozempic. He notes it was just him and his at home but now his son and their niece have moved in. He plans on continuing to cut back his alcohol intake at this point trying to get healthier. He notes he had an issue with some chest pain and some irregular heartbeats but he notes he had a normal heart catheterization a few years ago. He is on metoprolol because of this. He does not know of any known heart disease diagnosis. He does have neuropathy requiring gabapentin for his diabetes which can cause some weight gain. He has an ALT of 40 and has known underlying fatty liver. His last creatinine was 1.35 with a GFR 56. He denies problems with depression and his PHQ-9 score was 0 and starting our program. We will try to avoid Topamax as he does have history of kidney stones. 3. Obstructive sleep apnea requiring BiPAP. New Roads of 10 with starting the program. Treat with healthy lifestyle changes, good sleep hygiene and weight loss. Recommend he not stay up late at night. 4. Type 2 diabetes-improved/controlled with A1c of 6.6 with starting the program now down to 6.0. We discussed this could worsen his neuropathy and risk of heart disease. We stopped his Victoza 1.2 mg. Continue Ozempic. Consider SGLT2 inhibitor. At this point he will continue metformin 2000 mg. Actos 30 mg but he does have some edema, but the edema was already improving with our program. He understands that first-line treatment is with lifestyle changes, decrease simple sweets and starches, increase exercise and weight loss. 5. Hypertension-now well controlled on 3 medications. Hopefully we can cut the medication down her back in the future with minimizing or stopping alcohol and healthy lifestyle change. He will treat with a low-salt diet, decreased processed and restaurant foods, healthy lifestyle changes and achieve long-term weight loss. Monitor outside the office. 6. History of chest pain and irregular heartbeat-he notes he has been fine on metoprolol and he states that his recent heart cath was negative. I do not have results of this cath. Treat with healthy lifestyle changes and weight loss to minimize risk factors. GLP-1's can minimize risk. 7. Peripheral neuropathy-most likely diabetic in nature but could be worsened by alcohol. We will try to more tightly control his diabetes healthy lifestyle changes and switching to Ozempic. 8. Fatty liver-which may be related to alcohol and/or poor diet/abdominal obesity/lack of exercise. Recent increase in liver function test before starting naltrexone. He should continue to treat with long-term healthy lifestyle changes and weight loss. He should continue to at least minimize his alcohol intake. 9. Alcohol use-he was drinking between 6-10 alcoholic beverages a day but notes that he has now cut back to more social use. We continuing naltrexone. He understands that his liver function tests are worsening. We discussed the liver is the only organ that can metabolize the alcohol and the risk of any alcohol use but especially more than 1 or 2 beverages in a days time. 10. CKD 3 with creatinine of 1.35 and GFR 56.-Increase water intake. Monitor. Control blood pressure and diabetes. 11. Mixed hyperlipidemia-controlled. Continue to treat with statin, decreasing the simple sweets, added sugars, refined starches, and bad/added fats, increasing activity and exercise and continued long-term weight loss. 12. History of nephrolithiasis-increase water intake. 13. Vitamin B12 deficiency with a level of 121 on metformin 2000 mg a day. At that time we gave him a initial B12 shot x 2 and then continue B12 2500 mcg daily and closely monitor his B12 level with his last level up to 908. He will need lifelong replacement while on metformin. 14. Metabolic syndrome-treat with long-term healthy lifestyle changes, behavioral changes, healthy nutritional changes, increased activity and exercise and achieve long-term weight loss. Follow up with me in 6 weeks. New labs needed: Up-to-date. Recheck A1c again after 2024. Repeat B12 level, fasting cholesterol profile and CMP also in months. [facility] Work Phone: [phone]) 596-875601-24-2024 NoteUT Cardiology - [facility] Subjective Jose Townsend is a 53 y.o. year old male patient being seen for Follow-up Patient Active Problem List Diagnosis Coronary arteriosclerosis in [place] artery Diabetes mellitus (CMS/HCC) Displacement of intervertebral [...] Rate 11/17/2016 82 Atrial Rate 11/17/2016 82 WI Interval 11/17/2016 188 QRS DURATION 11/17/2016 84 QT Interval 11/17/2016 336 QTC CALCULATION(BEZET) 11/17/2016 392 P Nikolski 11/17/2016 49 R-Nikolski 11/17/2016 -46 T Wave Nikolski 11/17/2016 44 Diagnosis 11/17/2016 Value:Sinus rhythm with occasional Premature ventricular complexes Left anterior fascicular block Abnormal ECG No previous ECGs available Con (more content not included)...[facility]12-21-2023 Evaluation note* Encounter Date Diagnosis Assessment Notes Treatment Notes Treatment Clinical Notes Aug, Vitamin B12 deficiency (ICD-10 - E53.8) [facility] Other 12-20-2023 Evaluation note* Encounter Date Diagnosis [...] Medication monitorin g encounter (ICD-10 - Z51.81) [facility] Other 10-25-2023 Evaluation note* Encounter Date Diagnosis [...] Medication monitorin g encounter (ICD-10 - Z51.81) [facility] Other 09-12-2023 Evaluation note* Encounter Date Diagnosis [...] May, Obstructive sleep apnea (ICD-10 - G47.33) [facility] Other 08-11-2023 Evaluation note* Encounter Date Diagnosis Assessment Notes Treatment Notes Treatment Clinical Notes Apr, Type 2 diabetes mellitus with unspecified complications (ICD-10 - E11.8) [facility] Other 07-26-2023 Evaluation note* Encounter Date Diagnosis [...] (BMI 35.0-39.9) with comorbidity (ICD-10 - E66.01) [facility] Other 07-11-2023 Evaluation note* Encounter Date Diagnosis Assessment Notes Treatment Notes Treatment Clinical Notes Mar, Type 2 diabetes mellitus with unspecified complications (ICD-10 - E11.8) [facility] Other 07-11-2023 NotePatient here for 6 mo follow up [...] pain. All other systems reviewed and are negative.[facility] 04-01-2023 NoteCardiology Clinic Note Subjective Jose Townsend is a 52 y.o. year old male patient being with ild CAD by cath on 11/17/2016 (mild disease in OM and RCA and sluggish flow), hypertension, and hyperlipidemia. Patient Active Problem List Diagnosis Coronary arteriosclerosis in [place] artery Diabetes mellitus (CMS/HCC) Displacement of intervertebral [...] normal renal function and (more content not included)...[facility]04-12-2023 Evaluation note* Encounter Date Diagnosis Assessment Notes [...] (BMI 35.0-39.9) with comorbidity (ICD-10 - E66.01) [facility] Other Evaluation noteNo InformationNort Vaavud Other History general Narrative - Reported* Type Description Date Medical History DM type 2 2007 Medical History HTN Medical History High Cholesterol Medical History Sleep Apnea Bipap Medical History Fatty Liver Disease Medical History Kidney Stones Medical History Skin Cancer Surgical History appedectomy Surgical History wisdom teeth Surgical History disk fusion Surgical History knee surgery right Hospitalization History See above [facility] Other Summary Purpose Family History Relationship Condition Age at Onset Recorded Date/T yue brother Hypertension Unknown father Diabetes mellitus Unknown Heart disease Unknown Unknown Not Specified Unknown sister Hypertension Unknown Relationship Condition Age at Onset Recorded Date/T yue brother Hypertension Unknown father Diabetes mellitus Unknown Heart disease Unknown Unknown mother Unknown sister Hypertension Unknown Advance Directives Advance Directive Response Recorded Date/ Time Advance Directives No March 08 8:48am [place] [address] DISCHARGE SUMMARYPATIENT NAME: JOSE TOWNSEND : 1970MED REC NO: [id number] ROOM:ACCOUNT NO: [id number] ADMIT DATE: 06/22/2018PROVIDER: Bradley Escalante MD DISCH [...] is MRI c (more content not included)... Chief Complaint and Reason for Visit Chief Complaint WMN Dr follow up Reason for Visit Fatty liver Mixed hyperlipidemia Obesity (BMI 30.0-34.9) Obstructive sleep apnea Type 2 diabetes mellitus with unspecified complications Vitamin B12 deficiency Fatty liver Mixed hyperlipidemia Obesity (BMI 30.0-34.9) Obstructive sleep apnea Type 2 diabetes mellitus with unspecified complications Vitamin B12 deficiency Chief Complaint WMN Dr follow up Reason for Visit Fatty liver Mixed hyperlipidemia Obesity (BMI 30.0-34.9) Obstructive sleep apnea Type 2 diabetes mellitus with unspecified complications Vitamin B12 deficiency Additional Source Comments (unrecognized sect ion and content) No Status Records FoundNo Status Records FoundNo Status Records FoundNo Status Records FoundNo Status Records FoundNo Status Records Found INFORMATION SOURCE (unrecogn ized section and content) DATE CREATED AUTHOR 03/13/2018 [facility] DATE CREATED AUTHOR AUTHOR'S ORGANIZ ATION 07/23/2018 [facility] DATE CREATED AUTHOR AUTHOR'S ORGANIZ ATION 08/02/2022 [facility] DATE CREATED AUTHOR AUTHOR'S ORGANIZ ATION 04/10/2023 [facility] DATE CREATED AUTHOR AUTHOR'S ORGANIZ ATION 02/21/2024 [facility] DATE CREATED AUTHOR AUTHOR'S ORGANIZ ATION 02/24/2024 [facility] REASON FOR VISIT (unrecogniz ed section and content) WMN InitialDLC Ozempic RXDC Ozempic RefillWMN F/UNew Refill RequestCancel Appointment RequestNo InformationReschedule Appointment RequestWMNDLC labsWMNB-12 ShotReschedule Appointment RequestCancel Appointment Request Care Teams (unrecognized sec tion and content) Team Status: Active Member Role Status Brielle Sam MD Primary Care Provider Active Team Status: Inactive Member Role Status Brielle Sam MD Primary Care Provider Active Start: November 27, 2023 End: November 27, 2023 Deven Beckham MD Attending Provider Active Start: November 27, 2023 End: November 27, 2023 Team Status: Active Member Role Status Brielle Sam MD Primary Care Provide r, Attending Provider Active Start: November 28, 2023 Team Status: Inactive Member Role Status Brielle Sam MD Primary Care Provider Active Start: January 21, 2024 End: January 21, 2024 Deven Beckham MD Attending Provider Active Start: January 21, 2024 End: January 21, 2024 Team Status: Inactive Member Role Status Brielle Sam MD Primary Care Provider Active Start: March 18, 2024 End: March 18, 2024 Deven Beckham MD Attending Provider Active Start: March 18, 2024 End: March 18, 2024 Goals (unrecognized section and content) Goals may be documented in a n alternate section FOR RECORDS PERTAINING TO PATIENTS WHO ARE [...] BE BASED ON THE PRIMARY CLINICAL RECORDS. [employer] [facility]. provides no warranty or guarantee of the accuracy or completeness of information in this document.
[2024-06-16 09:18] LABS: Estimated Average Glucose 128 mg/dL; Glycohemoglobin A1C 6.1 % (4.5-6.2)
[2024-06-16 09:55] LABS: Alanine Aminotransferase 61 U/L (16-63); Albumin Globulin Ratio 1.5; Albumin Level 4.3 g/dL (3.4-5.0); Alkaline Phosphatase 78 U/L (46-116); Anion Gap 13.1; Aspartate Amino Transferase 49 U/L (15-37); BUN Creatinine Ratio 6.4; Bilirubin Total 0.6 mg/dL (0.2-1.0); Chloride 102 mmol/L (98-107); Chol HDL Ratio 2.2; Cholesterol 94 mg/dL (<=200); Estimated GFR (African America >60 (>=60); Estimated GFR (Non-African Ame >60 (>=60); Globulin 2.8 g/dL; Glucose 143 mg/dL (74-106); HDL Cholesterol 42 mg/dL (40-60); LDL Cholesterol Calculated 30.4 mg/dL; Potassium 4.1 mmol/L (3.5-5.1); Sodium 137 mmol/L (136-145); Total Protein 7.1 g/dL (6.4-8.2); Triglycerides 108 mg/dL (<=150); VLDL CHOLESTEROL 21.6 mg/dL
[2024-06-17 03:07] LABS: Vitamin B12 668 pg/mL (232-1245)
== END 2024-06-16 08:30 | disposition home or self-care (01) ==
LOC: LAB 08:34
PROVIDERS: PCP Family Medicine; Visit Provider Internal Medicine
DX: K76.0 Fatty (change of) liver, not elsewhere classified (principal); E11.8 Type 2 diabetes mellitus with unspecified complications; E53.8 Deficiency of other specified B group vitamins
CPT/HCPCS: 36415; 80053; 80061; 82607; 83036